=== PATIENT | male | born 1975 ===

== ENCOUNTER 2019-03-31 11:50 | Inpatient (IN) | payer OTHER ==
[~2019-03-31] VITALS: Ht 177.8 cm; Wt 76.7 kg
[2019-03-31] VITALS (7 sets, daily range): BP systolic 120–135; BP diastolic 68–84
--- NOTE | 2019-03-31 11:48 | NUR ---
ED Nurse Note: pt reported he takes Metformin but unable to recall the dosage and frequency.
[~2019-03-31 11:50] MED LIST: METFORMIN HCL5000 GM MC
--- NOTE | 2019-03-31 11:50 | NUR ---
ED Nurse Note: pt brought in to ER from street by ambulance due to severe back pain 03/26. per pt, he has had chronic back pain but today the pain got unbearable. pt lives with parents. pt aao x4 and unable to ambulate at this moment due to severe pain. calm and cooperative. skin dry but no visible wound noted at this time. no acute distress noted at this time.
--- NOTE | 2019-03-31 12:49 | NUR ---
ED Nurse Note: pt went down for x-ray by in stable condition. pt was able to ambulate from the bed to .
--- NOTE | 2019-03-31 12:50 | NUR ---
ED Nurse Note: Patient taken to X-ray in wheelchair.
[2019-03-31 13:03] LABS: APPEARANCE,URINE CLEAR; BILIRUBIN, URINE NEGATIVE (NEGATIVE); COLOR,URINE PALE YELLOW; GLUCOSE, URINE (UA) NEGATIVE (NEGATIVE); KETONES,URINE NEGATIVE (NEGATIVE); LEUKOCYTE ESTERASE ,URINE NEGATIVE (NEGATIVE); NITRITE,URINE NEGATIVE (NEGATIVE); PH,URINE 5 (4.5-8.0); PROTEIN,URINE 2+ (NEGATIVE); UROBILINOGEN,URINE NORMAL MG/DL (0.0-1.0)
[2019-03-31 13:06] LABS: HEMATOCRIT 30.2 % (42.0-52.0); HEMOGLOBIN 8.9 G/DL (14.2-18.0); MEAN CORPUSCULAR VOLUME 78 FL (80-99); RED BLOOD COUNT 3.89 M/UL (4.70-6.10); RED CELL DISTRIBUTION WIDTH 19.1 % (11.6-14.8); WHITE BLOOD COUNT 5.3 K/UL (4.8-10.8)
--- NOTE | 2019-03-31 13:06 | Emergency Room Report ---
History of Present Illness General Chief Complaint: Back Pain-No Injury Present Illness HPI 43-year-old male with a history of type 2 diabetes and hypertension currently not controlled as patient does not take his medication on daily basis, brought in by paramedics after being on the street and complaining of severe low back pain as well as bilateral leg numbness. Patient reports that he has been feeling that his legs are giving up on him and feeling numbness for several months. Patient supposed to be taking metformin for an unknown blood pressure medication who reports noncompliant with. Also reports that he drinks alcohol on a daily basis. Patient denies any fall or injury, denies urinary frequency and pain however reports of blood in his urine. Denies flank pain, saddle paresthesia, tingling and numbness radiating from lower back to the legs. Patient rating the pain in his lumbar region and 7 out of 10 and left-sided ribs 5 out of 10 without shortness of breath. Denies chest pain, blurry vision , headache, dizziness, abdominal pain, nausea vomiting. Has not taken medication to alleviate his symptoms. Patient is stable and has stable vital signs. As of trauma noted. (Rachana Singh) Allergies: Coded Allergies: No Known Allergies (Unverified , 03/31/19) Patient History Past Medical History: see triage record Past Surgical History: unable to obtain Pertinent Family History: none Social History: Reports: alcohol use - daily Immunizations: UTD Reviewed Nursing Documentation: PMH: Agreed; PSxH: Agreed (Rachana Singh) Nursing Documentation-PMH Hx Cardiac Problems: No - anemia Hx Hypertension: Yes Hx Diabetes: Yes (Rachana Singh) Review of Systems All Other Systems: negative except mentioned in HPI (Rachana Singh) Physical Exam Vital Signs Date Time Temp Pulse Resp B/P (MAP) Pulse Ox O2 Delivery O2 Flow Rate FiO2 03/31/19 12:02 98.4 111 18 125/78 (94) 95 Room Air Sp02 EP Interpretation: reviewed, normal General Appearance: no apparent distress, alert, GCS 15, non-toxic Head: normocephalic, atraumatic Eyes: bilateral eye normal inspection, bilateral eye PERRL ENT: hearing grossly normal, normal pharynx, no angioedema, normal voice Neck: full range of motion, supple/symm/no masses Respiratory: chest non-tender, lungs clear, normal breath sounds, no rhonchi, no respiratory distress, no wheezing, speaking full sentences Cardiovascular #1: normal inspection, normal peripheral pulses, regular rate, rhythm, no murmur, normal capillary refill Cardiovascular #2: 2+ dorsalis pedis (R), 2+ dorsalis pedis (L) Gastrointestinal: normal bowel sounds, non tender, soft, non-distended, no guarding, no rebound Rectal: deferred Musculoskeletal: back normal, gait/station normal, normal range of motion, non- tender, no calf tenderness, pelvis stable Neurologic: alert, oriented x3, responsive, motor strength/tone normal, sensory intact, speech normal Psychiatric: judgement/insight normal, memory normal, mood/affect normal, no suicidal/homicidal ideation Skin: no rash, normal color, other - No ecchymosis noted Lymphatic: no adenopathy (Rachana Singh) Medical Decision Making PA Attestation All my diagnosis and treatment plans were reviewed ad discussed with my supervising physician Dr. Mack (Rachana Singh) PA Attestation I have overseen and manage the care of this patient along with CAREN Cantu. Briefly, this is a 43-year-old male with a history of noncompliance for hypertension and diabetes presenting today with back pain and abdominal pain. He was found to have pancreatitis from an elevated lipase but also findings on CT suggestive of cirrhosis which he says is a new diagnosis with him, portal hypertension, splenomegaly. He has microcytic anemia and thrombocytopenia concerning for splenic sequestration as well as a granuloma in the right middle lobe. He has persistent pain and is receiving IV fluids and pain medication. He will be admitted for further work-up and management. (Joshua Cheatham MD) Diagnostic Impression: Primary Impression: Spleen enlargement Additional Impressions: Liver cirrhosis Pancreatitis ER Course 43-year-old male with a history of type 2 diabetes and hypertension currently not controlled as patient does not take his medication on daily basis, brought in by paramedics after being on the street and complaining of severe low back pain as well as bilateral leg numbness. Patient reports that he has been feeling that his legs are giving up on him and feeling numbness for several months. Patient supposed to be taking metformin for an unknown blood pressure medication who reports noncompliant with. Also reports that he drinks alcohol on a daily basis. Patient denies any fall or injury, denies urinary frequency and pain however reports of blood in his urine. Denies flank pain, saddle paresthesia, tingling and numbness radiating from lower back to the legs. Patient rating the pain in his lumbar region and 7 out of 10 and left-sided ribs 5 out of 10 without shortness of breath. Denies chest pain, blurry vision , headache, dizziness, abdominal pain, nausea vomiting. Has not taken medication to alleviate his symptoms. Patient is stable and has stable vital signs. As of trauma noted. Ddx considered but are not limited to: Splenomegaly, pink otitis, liver cirrhosis, cholecystitis, lumbar spine fracture versus contusion Vital signs: are WNL, pt. is afebrile H&PE are most consistent with: Splenomegaly, pancreatitis, liver cirrhosis ORDERS: Lumbar spine x-ray, chest x-ray with rib series on the left side, abdominal CT scan with contrast, abdominal pain order ER intervention: Morphine, NS bolus, Zofran, Pepcid Patient was admitted with diagnosis of splenomegaly, liver cirrhosis, hepatitis to under supervision of .: Nabila pt stable at time of admission (Rachana Singh) Chest X-Ray Diagnostic Results Chest X-Ray Diagnostic Results : Chest X-Ray Ordered: Yes # of Views/Limited/Complete: 1 View Indication: Other EP Interpretation: Yes PA Xray: Interpretation reviewed, by supervising MD, and agrees with findings. Interpretation: no consolidation, no effusion, no pneumothorax Impression: No acute disease Electronically Signed by: Rachana Arias PA-C (Rachana Singh) Other X-Ray Diagnostic Results Other X-Ray Diagnostic Results #1: X-Ray ordered: L spine # of Views/Limited Vs Complete: 3 View Indication: Pain EP Interpretation: Yes PA Xray: Interpretation reviewed, by supervising MD, and agrees with findings. Interpretation: no dislocation, no soft tissue swelling, no fractures Impression: No acute disease Electronically Signed by: Rahcana Arias PA-C Other X-Ray Diagnostic Results #2: X-Ray ordered: ribs left side # of Views/Limited Vs Complete: 3 View Indication: Pain EP Interpretation: Yes CAREN Xray: Interpretation reviewed, by supervising MD, and agrees with findings. Interpretation: no dislocation, no soft tissue swelling, no fractures Impression: No acute disease Electronically Signed by: Rachana Arias PA-C (Rachana Singh) CT/MRI/US Diagnostic Results CT/MRI/US Diagnostic Results : Imaging Test Ordered: CT abdomen pelvis with contrast Impression Enlarged spleen, liver cirrhosis (Rachana Singh) Last Vital Signs Date Time Temp Pulse Resp B/P (MAP) Pulse Ox O2 Delivery O2 Flow Rate FiO2 03/31/19 12:02 98.4 101 18 125/78 95 Room Air (Rachana Singh) Disposition: ADMITTED INPATIENT Condition: Serious Rachana Singh Mar 31, 2019 13:06 Joshua Cheatham MD Mar 31, 2019 17:57
[2019-03-31 13:09] LABS: ANION GAP 9 mmol/L (5-15); BLOOD UREA NITROGEN 9 mg/dL (7-18); CARBON DIOXIDE 24 MMOL/L (21-32); CHLORIDE 109 MMOL/L (98-107); CREATININE 0.9 MG/DL (0.55-1.30); POTASSIUM 3.7 MMOL/L (3.5-5.1); SODIUM 142 MMOL/L (136-145)
[2019-03-31 13:14] LABS: ALANINE AMINOTRANSFERASE 53 U/L (12-78); ALBUMIN 3.2 G/DL (3.4-5.0); ALBUMIN/GLOBULIN RATIO 0.6 (1.0-2.7); ALKALINE PHOSPHATASE 99 U/L (46-116); ASPARTATE AMINO TRANSFERASE 66 U/L (15-37); BILIRUBIN,TOTAL 0.4 MG/DL (0.2-1.0); CREATINE KINASE 141 U/L (26-308)
[2019-03-31 13:27] LABS: PLATELET COUNT 83 K/UL (150-450)
[2019-03-31] MEDS ORDERED: Omnipaque-300 100ml vial INJ PRN (13:30)
[2019-03-31 13:41] LABS: INR 1.1 (0.9-1.1)
--- NOTE | 2019-03-31 13:50 | NUR ---
ED Nurse Note: pt back from ct
--- NOTE | 2019-03-31 13:52 | Diagnostic Imaging Report ---
Indication: Lumbar spine pain Technique: 3 views of the lumbar spine Comparison: None Findings: Bony alignment is normal. Vertebral body heights are preserved. There is degenerative disc narrowing at L3-4 and L4-5. The remaining disc spaces are preserved. No acute fractures. No dislocations. The pedicles are intact. Sacral arches are preserved. Sacroiliac joint spaces are preserved. The surrounding soft tissues are unremarkable Impression: Degenerative changes as described No acute bony trauma
--- NOTE | 2019-03-31 14:50 | NUR ---
ED Nurse Note: pt left for x-ray
--- NOTE | 2019-03-31 14:59 | NUR ---
ED Nurse Note: pt back from 2nd x-ray.
--- NOTE | 2019-03-31 15:14 | Diagnostic Imaging Report ---
Clinical Indication: Severe low back pain, abdominal pain Technique: No oral contrast utilized, per emergency room physician request IV administration nonionic contrast. Venous phase spiral acquisition obtained through the abdomen and pelvis. Multiplanar reconstructions were generated. Total dose length product 4327 mGycm. CTDIvol(s) 49 x 2 mGy. Dose reduction achieved using automated exposure control Comparison: none Findings: Lack of enteric contrast limits assessment of the GI tract. The appendix is normal. There is no evidence of diverticulosis or diverticulitis. The distal ileum is somewhat prominent in caliber, but no herman small bowel distention. No free or loculated intraperitoneal gas or fluid is evident. The distal esophagus, stomach, duodenum are unremarkable. The liver demonstrates surface nodularity, consistent with cirrhosis. Subcentimeter low-attenuation lesions are seen in the inferior right hepatic lobe, segment 6. The gallbladder is nondistended, unremarkable. No biliary ductal dilatation. The pancreas is unremarkable. The spleen is enlarged, measuring 15 cm long axis dimension. No focal splenic abnormality. Small perigastric, periesophageal, and splenic hilar varices are demonstrated. The adrenals are unremarkable. The kidneys are unremarkable. No renal or ureteral calculi. No focal renal parenchymal abnormality. No hydronephrosis or hydroureter. There is mild bladder wall thickening. No pelvic mass or adenopathy. The prostate is prominent. The included lung bases demonstrate posterior dependent atelectatic changes, are otherwise clear. The bones demonstrate mild degenerative spondylosis changes. Impression: Limited assessment of the GI tract, due to lack of enteric contrast administration Mildly prominent distal ileum, doubtful significance although the possibility of enteritis should be considered Mild bladder wall thickening, could indicate cystitis No definite acute abnormality otherwise Evidence of hepatic cirrhosis, with hepatic surface nodularity Evidence of portal hypertension, with splenomegaly and small varices Prominent prostate Incidental findings as noted, including dependent posterior pulmonary atelectatic changes, mild degenerative spondylosis The CT scanner at [facility] is accredited by the [employer] and the scans are performed using protocols designed to limit radiation exposure to as low as reasonably achievable to attain images of sufficient resolution adequate for diagnostic evaluation.
[2019-03-31] MEDS ORDERED: Morphine Sulfate 2mg/ml Inj(IV/IM USE ONLY) IVP ONE (15:30)
--- NOTE | 2019-03-31 15:35 | Diagnostic Imaging Report ---
Indication: Reason For Exam: PAIN Technique: One view of the chest, 2 views of the left ribs Comparison: none Findings: Chest demonstrates clear lungs, no infiltrates, effusions, or congestion. The heart size is upper limits of normal. No evidence of acute rib fracture. No pneumothorax. There is a calcified granuloma in the right midlung Impression: No acute process Evidence of old granulomatous disease
--- NOTE | 2019-03-31 17:24 | NUR ---
ED Nurse Note: pt alert and talking on the phone.
--- NOTE | 2019-03-31 18:01 | NUR ---
ED Nurse Note: pt awake and eating second sandwich.
--- NOTE | 2019-03-31 18:23 | NUR ---
ED Nurse Note: called for report and RN said she will call back.
--- NOTE | 2019-03-31 18:58 | NUR ---
TRANSFER TO FLOOR: Patient transferred to as ordered, per MD Yelena. Report given to SELENA Toledo. Belongings and medications given to patient. Family and or S/O informed of transfer.
--- NOTE | 2019-03-31 20:26 | General Progress Note ---
Assessment/Plan Assessment/Plan: GI CONSULT Dictated. Thank you. Fatou Kolb MD Subjective Allergies: Coded Allergies: No Known Allergies (Unverified , 03/31/19) Objective Last 24 Hour Vital Signs Date Time Temp Pulse Resp B/P (MAP) Pulse Ox O2 Delivery O2 Flow Rate FiO2 03/31/19 18:58 98.0 98 18 131/84 95 Room Air 03/31/19 18:01 98.2 95 18 128/79 95 Room Air 03/31/19 16:54 97.6 98 15 135/84 95 Room Air 03/31/19 16:02 98.0 03/31/19 15:15 98.2 100 18 128/78 95 Room Air 03/31/19 14:50 98.8 95 16 120/68 95 Room Air 03/31/19 13:00 98.2 100 20 122/75 95 Room Air 03/31/19 12:02 98.4 101 18 125/78 95 Room Air 03/31/19 12:02 98.4 111 18 125/78 (94) 95 Room Air Laboratory Tests 03/31/19 12:30: White Blood Count 5.3, Red Blood Count 3.89L, Hemoglobin 8.9L, Hematocrit 30.2L , Mean Corpuscular Volume 78L, Mean Corpuscular Hemoglobin 22.9L, Mean Corpuscular Hemoglobin Concent 29.5L, Red Cell Distribution Width 19.1H, Platelet Count 83L, Mean Platelet Volume 8.9, Neutrophils (%) (Auto) , Lymphocytes (%) (Auto) , Monocytes (%) (Auto) , Eosinophils (%) (Auto) , Basophils (%) (Auto) , Differential Total Cells Counted 100, Neutrophils % ( Manual) 45, Lymphocytes % (Manual) 48H, Monocytes % (Manual) 4, Eosinophils % ( Manual) 3, Basophils % (Manual) 0, Band Neutrophils 0, Platelet Estimate DecreasedL, Platelet Morphology , Clumped Platelets 1+, Hypochromasia 1+, Anisocytosis 1+, Microcytosis 1+, Prothrombin Time 11.2, Prothromb Time International Ratio 1.1, Activated Partial Thromboplast Time 28, Urine Color Pale yellow, Urine Appearance Clear, Urine pH 5, Urine Specific [place] 1.015, Urine Protein 2+H, Urine Glucose (UA) Negative, Urine Ketones Negative, Urine Blood 1+H, Urine Nitrite Negative, Urine Bilirubin Negative, Urine Urobilinogen Normal, Urine Leukocyte Esterase Negative, Urine RBC 0-2H, Urine WBC 0, Urine Squamous Epithelial Cells Occasional, Urine Bacteria Occasional, Sodium Level 142, Potassium Level 3.7, Chloride Level 109H, Carbon Dioxide Level 24, Anion Gap 9, Blood Urea Nitrogen 9, Creatinine 0.9, Estimat Glomerular Filtration Rate > 60, Glucose Level 119H, Calcium Level 8.0L, Total Bilirubin 0.4, Aspartate Amino Transf (AST/SGOT) 66H, Alanine Aminotransferase (ALT/SGPT) 53, Alkaline Phosphatase 99, Total Creatine Kinase 141, Total Protein 8.7H, Albumin 3.2L, Globulin 5.5, Albumin/Globulin Ratio 0.6L, Lipase 623H Height (Feet): 5 Height (Inches): 10.00 Weight (Pounds): 170 Fatou Kolb MD Mar 31, 2019 20:26
[2019-03-31] MEDS ORDERED: LORazepam Inj 2mg/ml 1ml IV PRN (21:15)
[2019-03-31] MEDS: D5 1/2NS 1,000 ML IV SCH (21:15)
[2019-03-31] MEDS ORDERED: Folic Acid 1 MG, Multivitamin - 12 Injection 10 ML, Thiamine HCl 100 MG in Sodium Chlor... IV SCH (21:15)
--- NOTE | 2019-03-31 22:00 | NUR ---
NURSE NOTES: Admitted a 43 year old, alert and oriented x4, with complaint of 5/10. IV access on the right antecubital area. Obtained admission orders from Dr. Kirk. Pt was seen by Dr. Kolb, ordered to put patient on clear liquids for now. Oriented to room. Instructed the use of call light. Call light in reach, bed in lowest. Will continue to monitor.
[2019-03-31] MEDS: Thiamine 100mg in D5W 55ml IVPB SCH (22:29)
[2019-03-31] MEDS: MAGNESIUM SULFATE IV SCH (23:12)
[2019-03-31] MEDS: MULTIVITAMIN IV SCH (23:12)
[2019-03-31] MEDS: [UNRECOGNIZED DRUG - OTHER] IV SCH (23:12)
[2019-03-31] MEDS: FOLIC ACID IV SCH (23:12)
[2019-04-01] VITALS: BP 121/69
--- NOTE | 2019-04-01 00:45 | Consultation ---
DATE OF CONSULTATION: 03/31/2019 GASTROENTEROLOGY CONSULTATION CONSULTING PHYSICIAN: Fatou Kolb M.D. CHIEF COMPLAINT: I was asked to see this patient by Dr. Kirk for evaluation of cirrhosis. HISTORY OF PRESENT ILLNESS: The patient is a 43-year-old man who states he has been drinking adamantly for many years and comes into the hospital due to back pain. He states that he had back pain, felt weak and dizzy, and came to the emergency room, although he feels better now. He denies any abdominal pain, but did complain of some rib pain. He states he drinks about 10 beers a day for many years. He has diabetes, for which he takes metformin. He is aware of his cirrhosis and also anemia, but does not seem to have much workup or followup regarding these issues. He states he did not have endoscopy or colonoscopy. He denied any bleeding. He does not know if he has ever been checked for hepatitis, does not recall being told he has hepatitis. PAST MEDICAL HISTORY: History of [id number] diabetes and history of hypertension. MEDICATIONS: Metformin. FAMILY HISTORY: Noncontributory. SOCIAL HISTORY: The patient is single. He has 4 children. He drinks 10 beers a day, but does not smoke or use any drugs. REVIEW OF SYSTEMS: Otherwise negative. PHYSICAL EXAMINATION: GENERAL: Well-developed, well-nourished man, seen in his room. HEENT: Normocephalic and atraumatic. Sclerae are anicteric. Oropharynx clear. NECK: Supple. CHEST: Revealed coarse breath sounds. CARDIOVASCULAR: Revealed a regular rate. ABDOMEN: Soft, nontender. Good bowel sounds. There is no organomegaly. EXTREMITIES: Revealed no edema. NEUROLOGIC: Nonfocal. LABORATORY DATA: Noted and they showed mild elevation in AST and normal ALT with normal alkaline phosphatase and bilirubin. Albumin was mildly low at 3.2. Lipase is mildly elevated at 623 (based on this hospital's normal standards for lipase). CBC showed anemia with hematocrit of 30 and MCV of 78 and platelet count of 82,000. CT scan was noted, it was notable for some nodular changes in the liver consistent with cirrhosis and portal hypertension. ASSESSMENT: This patient has longstanding drinking with apparent portal hypertension and cirrhosis manifesting as thrombocytopenia and some mild level of alcoholic hepatitis as manifested by liver tests. However, the lipase is not very elevated according to this hospital's normal standards for lipase and also the patient denies any abdominal pain. He says the back pain is old, but he has always had back pain not the type that will be referred from the front to the back. He has already been given po diet, which he has tolerated well. I would continue his diabetic diet. He was strongly advised to discontinue drinking as this appears to be the root of this problem. Since he is anemic, he should undergo an endoscopy and colonoscopy at a later date as an outpatient once he is stabilized and has stopped drinking. I explained to the patient that his alcoholism and cirrhosis could ultimately be lethal causative factors if he does not stop drinking. RECOMMENDATIONS: 1. Intravenous hydration. 2. Restart oral diet trial. 3. Follow laboratory parameters and exam. 4. Check hepatitis serologies. 5. Strongly advised to stop drinking. 6. Outpatient endoscopy and colonoscopy. Thank you for asking me to participate in the care of this patient. Fatou Kolb M.D. DR: Harinder JOB#: [id number] CC: SARAH
--- NOTE | 2019-04-01 01:53 | NUR ---
HAND-OFF: Report given to SELENA Gee.
--- NOTE | 2019-04-01 02:00 | NUR ---
NURSE NOTES: RECEIVED PT FROM SELENA GOODEN. PT IS AWAKE, AAO X4, ON ROOM AIR, NO ACUTE DISTRESS NOTED. IV ON LEFT AC IS INTACT AND PATENT. PT DENIES PAIN AT THE MOMENT. BED IS LOCKED AND LOW, BED ALARMS ACTIVE, SIDE RAILS UP X2 AND CALL LIGHT IS WITHIN REACH. WILL CONTINUE TO MONITOR.
[2019-04-01 04:00] VITALS: BP 144/81
[2019-04-01] MEDS: D5 1/2NS 1,000 ML IV SCH (07:15)
[2019-04-01 07:16] LABS: HEMATOCRIT 27.7 % (42.0-52.0); HEMOGLOBIN 8.3 G/DL (14.2-18.0); MEAN CORPUSCULAR VOLUME 76 FL (80-99); PLATELET COUNT 26 K/UL (150-450); RED BLOOD COUNT 3.63 M/UL (4.70-6.10); WHITE BLOOD COUNT 3.7 K/UL (4.8-10.8)
--- NOTE | 2019-04-01 07:20 | NUR ---
Received report from SELENA Gee. Pt is A/Cintia4, on RA, IV site intact and running fluids, no apparent distress noted. Bed locked in lowest position, side rails up, call light within reach.
[2019-04-01 07:33] LABS: ALANINE AMINOTRANSFERASE 45 U/L (12-78); ALBUMIN 3.1 G/DL (3.4-5.0); ALBUMIN/GLOBULIN RATIO 0.6 (1.0-2.7); ALKALINE PHOSPHATASE 99 U/L (46-116); ANION GAP 6 mmol/L (5-15); ASPARTATE AMINO TRANSFERASE 54 U/L (15-37); BILIRUBIN,TOTAL 0.6 MG/DL (0.2-1.0); BLOOD UREA NITROGEN 7 mg/dL (7-18); CALCIUM 8.2 MG/DL (8.5-10.1); CARBON DIOXIDE 28 MMOL/L (21-32); CHLORIDE 104 MMOL/L (98-107); CREATININE 0.7 MG/DL (0.55-1.30); POTASSIUM 3.3 MMOL/L (3.5-5.1); SODIUM 138 MMOL/L (136-145)
--- NOTE | 2019-04-01 07:49 | NUR ---
HAND-OFF: Report given to SELENA PORTER.
[2019-04-01 08:00] VITALS: BP 140/77
--- NOTE | 2019-04-01 08:15 | NUR ---
NURSE NOTES: RN spoke to Dr. Ott regarding patient's WBC of 3.7 and PLT of 26,000 today dropped from 83,000 since 03/31/19. No episodes of active bleeding now but patient stated that he had alfreda colored urine before. RN received order from Dr. Ott to check INR and Fibrinogen and give 1 unit of platelet, BBK made aware and RN was told platelet will be ordered to [facility] so it will take 4-5 hours to receive and patient agreed with platelet transfusion. Transfusion information given to the patient.
[2019-04-01 10:26] LABS: INR 1.1 (0.9-1.1)
--- NOTE | 2019-04-01 10:51 | Consultation ---
History of Present Illness General Chief Complaint: Back Pain-No Injury Present Illness Allergies: Coded Allergies: No Known Allergies (Unverified , 03/31/19) Medication History Miscellaneous Medications Metformin Hcl (Metformin Hcl), Unknown Dose MC, (Reported) Patient History Healthcare decision maker Resuscitation status Full Code Advanced Directive on File Physical Exam Last 24 Hour Vital Signs Date Time Temp Pulse Resp B/P (MAP) Pulse Ox O2 Delivery O2 Flow Rate FiO2 04/01/19 04:00 98.1 73 17 144/81 (102) 98 04/01/19 00:00 98.6 90 18 121/69 (86) 95 03/31/19 23:09 Room Air 03/31/19 20:00 98.5 92 19 124/70 (88) 95 03/31/19 18:58 98.0 98 18 131/84 95 Room Air 03/31/19 18:01 98.2 95 18 128/79 95 Room Air 03/31/19 16:54 97.6 98 15 135/84 95 Room Air 03/31/19 16:02 98.0 03/31/19 15:15 98.2 100 18 128/78 95 Room Air 03/31/19 14:50 98.8 95 16 120/68 95 Room Air 03/31/19 13:00 98.2 100 20 122/75 95 Room Air 03/31/19 12:02 98.4 101 18 125/78 95 Room Air 03/31/19 12:02 98.4 111 18 125/78 (94) 95 Room Air Intake and Output 03/31/19 04/01/19 18:59 06:59 Intake Total 3000 ml 911 ml Balance 3000 ml 911 ml Intake Oral 0 ml 480 ml IV Total 3000 ml 431 ml # Voids 3 Laboratory Tests Test 03/31/19 12:30 04/01/19 05:53 04/01/19 09:00 White Blood Count 5.3 K/UL (4.8-10.8) 3.7 K/UL (4.8-10.8) L Red Blood Count 3.89 M/UL (4.70-6.10) L 3.63 M/UL (4.70-6.10) L Hemoglobin 8.9 G/DL (14.2-18.0) L 8.3 G/DL (14.2-18.0) L Hematocrit 30.2 % (42.0-52.0) L 27.7 % (42.0-52.0) L Mean Corpuscular Volume 78 FL (80-99) L 76 FL (80-99) L Mean Corpuscular Hemoglobin 22.9 PG (27.0-31.0) L 23.0 PG (27.0-31.0) L Mean Corpuscular Hemoglobin Concent 29.5 G/DL (32.0-36.0) L 30.1 G/DL (32.0-36.0) L Red Cell Distribution Width 19.1 % (11.6-14.8) H 19.0 % (11.6-14.8) H Platelet Count 83 K/UL (150-450) L 26 K/UL (150-450) #L Mean Platelet Volume 8.9 FL (6.5-10.1) 8.5 FL (6.5-10.1) Neutrophils (%) (Auto) % (45.0-75.0) % (45.0-75.0) Lymphocytes (%) (Auto) % (20.0-45.0) % (20.0-45.0) Monocytes (%) (Auto) % (1.0-10.0) % (1.0-10.0) Eosinophils (%) (Auto) % (0.0-3.0) % (0.0-3.0) Basophils (%) (Auto) % (0.0-2.0) % (0.0-2.0) Differential Total Cells Counted 100 Neutrophils % (Manual) 45 % (45-75) Pending Lymphocytes % (Manual) 48 % (20-45) H Pending Monocytes % (Manual) 4 % (1-10) Eosinophils % (Manual) 3 % (0-3) Basophils % (Manual) 0 % (0-2) Band Neutrophils 0 % (0-8) Platelet Estimate Decreased L Pending Platelet Morphology Pending Clumped Platelets 1+ Hypochromasia 1+ Anisocytosis 1+ Microcytosis 1+ Prothrombin Time 11.2 SEC (9.30-11.50) 11.6 SEC (9.30-11.50) H Prothromb Time International Ratio 1.1 (0.9-1.1) 1.1 (0.9-1.1) Activated Partial Thromboplast Time 28 SEC (23-33) Urine Color Pale yellow Urine Appearance Clear Urine pH 5 (4.5-8.0) Urine Specific [place] 1.015 (1.005-1.035) Urine Protein 2+ (NEGATIVE) H Urine Glucose (UA) Negative (NEGATIVE) Urine Ketones Negative (NEGATIVE) Urine Blood 1+ (NEGATIVE) H Urine Nitrite Negative (NEGATIVE) Urine Bilirubin Negative (NEGATIVE) Urine Urobilinogen Normal MG/DL (0.0-1.0) Urine Leukocyte Esterase Negative (NEGATIVE) Urine RBC 0-2 /HPF (0 - 0) H Urine WBC 0 /HPF (0 - 0) Urine Squamous Epithelial Cells Occasional /LPF Urine Bacteria Occasional /HPF (NONE) Sodium Level 142 MMOL/L (136-145) 138 MMOL/L (136-145) Potassium Level 3.7 MMOL/L (3.5-5.1) 3.3 MMOL/L (3.5-5.1) L Chloride Level 109 MMOL/L (98-107) H 104 MMOL/L (98-107) Carbon Dioxide Level 24 MMOL/L (21-32) 28 MMOL/L (21-32) Anion Gap 9 mmol/L (5-15) 6 mmol/L (5-15) Blood Urea Nitrogen 9 mg/dL (7-18) 7 mg/dL (7-18) Creatinine 0.9 MG/DL (0.55-1.30) 0.7 MG/DL (0.55-1.30) Estimat Glomerular Filtration Rate > 60 mL/min (>60) > 60 mL/min (>60) Glucose Level 119 MG/DL (74-106) H 86 MG/DL (74-106) Calcium Level 8.0 MG/DL (8.5-10.1) L 8.2 MG/DL (8.5-10.1) L Total Bilirubin 0.4 MG/DL (0.2-1.0) 0.6 MG/DL (0.2-1.0) Aspartate Amino Transf (AST/SGOT) 66 U/L (15-37) H 54 U/L (15-37) H Alanine Aminotransferase (ALT/SGPT) 53 U/L (12-78) 45 U/L (12-78) Alkaline Phosphatase 99 U/L (46-116) 99 U/L (46-116) Total Creatine Kinase 141 U/L (26-308) Total Protein 8.7 G/DL (6.4-8.2) H 8.5 G/DL (6.4-8.2) H Albumin 3.2 G/DL (3.4-5.0) L 3.1 G/DL (3.4-5.0) L Globulin 5.5 g/dL 5.4 g/dL Albumin/Globulin Ratio 0.6 (1.0-2.7) L 0.6 (1.0-2.7) L Lipase 623 U/L (73-393) H 552 U/L (73-393) H Hepatitis A IgM Antibody Pending Hepatitis B Surface Antigen Pending Hepatitis B Core IgM Antibody Pending Hepatitis C Antibody Pending Fibrinogen 213 mg/dL (200-400) Height (Feet): 5 Height (Inches): 10.00 Weight (Pounds): 169 Medications Current Medications Medications (Trade) Dose Ordered Sig/Sheyla Route PRN Reason Start Time Stop Time Status Last Admin Dose Admin Clonidine HCl (Catapres Tab) 0.1 mg Q6H PRN ORAL SBP>170 03/31/19 21:15 04/30/19 21:14 Dextrose/Sodium Chloride 1,000 ml @ 100 mls/hr Q10H IV 03/31/19 21:15 04/30/19 21:14 Folic Acid 1 mg/ Multivitamins 10 ml/Magnesium Sulfate 2000 mg/ Sodium Chloride 1,014.2 ml @ 75 mls/hr Q24H IV 03/31/19 23:00 04/30/19 22:59 03/31/19 23:12 Iohexol (OMNIPAQUE-300 100ml) 100 ml NOW PRN INJ Radiology Procedure 03/31/19 13:30 04/02/19 13:17 Lorazepam (Ativan 2mg/ml 1ml) 2 mg Q2H PRN IV For Seizures 03/31/19 21:15 04/07/19 21:14 Potassium Chloride 100 ml @ 100 mls/hr Q1HR IVPB 04/01/19 09:00 04/01/19 10:59 04/01/19 09:55 Thiamine HCl 100 mg/Dextrose 56 ml @ 112 mls/hr Q24H IVPB 03/31/19 23:00 04/30/19 22:59 03/31/19 22:29 Assessment/Plan Assessment/Plan: Hematology Consultation ARLEEN MILTON: Katharine Theodore RFC: Thrombocytopenia, Splenomegaly eval DOS: 04/01/19 ID 43-year-old male with a history of type 2 diabetes and hypertension currently not controlled as patient does not take his medication on daily basis, brought in by paramedics after being on the street and complaining of severe low back pain as well as bilateral leg numbness. Patient reports that he has been feeling that his legs are giving up on him and feeling numbness for several months. Patient supposed to be taking metformin for an unknown blood pressure medication who reports noncompliant with. Also reports that he drinks alcohol on a daily basis. Patient denies any fall or injury, denies urinary frequency and pain however reports of blood in his urine. Denies flank pain, saddle paresthesia, tingling and numbness radiating from lower back to the legs. Patient rating the pain in his lumbar region and 7 out of 10 and left-sided ribs 5 out of 10 without shortness of breath. Denies chest pain, blurry vision , headache, dizziness, abdominal pain, nausea vomiting. Has not taken medication to alleviate his symptoms. Patient is stable and has stable vital signs. As of trauma noted. CT a/p was reviewed and shows splenomegaly and cirrhosis and heme was consulted for further eval, given plt count has dropped significantly. Allergies: No Known Allergies (Unverified , 03/31/19) Past Medical History: see triage record Past Surgical History: unable to obtain Pertinent Family History: none Social History: Reports: alcohol use - daily Immunizations: UTD Reviewed Nursing Documentation: PMH: Agreed; PSxH: Agreed (Rachana Singh) Nursing Documentation-PMH Hx Cardiac Problems: No - anemia Hx Hypertension: Yes Hx Diabetes: Yes Review of Systems negative except mentioned in HPI PE: Vitals: reviewed General Appearance: NAD HEENT: normocephalic, atraumatic Neck: non-tender, normal alignment Respiratory/Chest: nromal breath sounds bilaterally Cardiovascular/Chest: normal peripheral pulses, normal rate Abdomen: normal bowel sounds, soft, nontender Extremities: normal range of motion Labs: noted Imaging: reviewed Assessment and Recs: # Thrombocytopenia - due to etoh abise, is in this case very likely due to underlying cirrhosis of the liver, portal htn, splenomegaly, with microcytic anemia --> have urged him to stop drinking --> Hep panel and HIV ordered --> CT scan of a/p does confirm cirrhosis --> Peripheral smear ordered to evaluate for blasts /schistocytes shows mostly lymphocytes, likely due to low wbc in general --> abx and other meds have been reviewed --> plt 83-->26k --> give platelet transfusion given rapid drop, r/o DIC as well, have ordered workup --> hold lovenox/heparin sq # Leukopenia -- due to underlying liver disease, cirrhosis and portal htn/ splenomegaly --> peripheral smear has been ordered and does not show significant abnormalities --> Medications have been reviewed --> Continue to monitor for improvement, trend cbc --> Hep panel and HIV have been ordered --> reverse isolation if ANC is <2000 # Pancreatitis from an elevated lipase but also findings on CT suggestive of cirrhosis which he says is a new diagnosis with him, portal hypertension, splenomegaly. --> has splenic sequestration as well as a granuloma in the right middle lobe. --> He has persistent pain and is receiving IV fluids and pain medication, thiamine, folic acid # Spleen enlargement # Type 2 diabetes # Hypertension currently not controlled # Cirrhosis due to etoh use # DVt ppx with scds The timing of this note does not necessarily reflect the time of the patient was seen. Greatly appreciate consultation. Audi Ott MD Apr 01, 2019 10:51
--- NOTE | 2019-04-01 11:44 | NUR ---
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
[2019-04-01 12:00] VITALS: BP 135/80
[2019-04-01 16:00] VITALS: BP 122/90
--- NOTE | 2019-04-01 16:03 | Consultation ---
Consult Note Consult Note asked to eval at the request of dr roman 43-year-old male with a history of type 2 diabetes and hypertension currently not controlled as patient does not take his medication on daily basis, brought in by paramedics after being on the street and complaining of severe low back pain as well as bilateral leg numbness. Patient reports that he has been feeling that his legs are giving up on him and feeling numbness for several months. Patient supposed to be taking metformin for an unknown blood pressure medication who reports noncompliant with. Also reports that he drinks alcohol on a daily basis. Patient denies any fall or injury, denies urinary frequency and pain however reports of blood in his urine. Denies flank pain, saddle paresthesia, tingling and numbness radiating from lower back to the legs. Patient rating the pain in his lumbar region and 7 out of 10 and left-sided ribs 5 out of 10 without shortness of breath. Denies chest pain, blurry vision , headache, dizziness, abdominal pain, nausea vomiting. Has not taken medication to alleviate his symptoms. Patient is stable and has stable vital signs. As of trauma noted. No Known Allergies (Unverified , 03/31/19) Hx Cardiac Problems: No - anemia Hx Hypertension: Yes Hx Diabetes: Yes interviewed examined data reviewed Assessment/Plan Pancreatitis Anemia HTN Cirrhosis Anemia mena PRN BP meds Per orders Esequiel Foley MD Apr 01, 2019 16:03
--- NOTE | 2019-04-01 16:29 | NUR ---
CASE MANAGEMENT:REVIEW 43 YR OLD MALE PRESENTED TO ER CC: BACK PAIN SI: PANCREATITIS. LIVER CIRRHOSIS 98.4 101 18 125/78 95% ON RA H/H-8.9/30.2 PLT-83 LIPASE+623 IS: 1L NS BOLUS X2 IV MORPHINE IV ZOFRAN CT ABD/PELVIS XRAY RIBS AND L SPINE : TO MED/SURG [facility]
--- NOTE | 2019-04-01 17:00 | NUR ---
NURSE NOTES: Pt signed the platelet transfusion consent form. Platelet transfusion information given to the pt. Pt is aware of possible adverse reactions. Given Tylenol and Benadryl x 1 prior to platelet transfusion as per Dr. Ott. VS obtained. BP 149/80 ID 67 O2 Sat 99% RR 16 Temp 98.1. Started platelet, 2 RNs verified it. RN at bedside will continue to monitor.
--- NOTE | 2019-04-01 17:00 | NUR ---
NURSE NOTES: Unable to hang IVF due to patient is getting platelet. Will hang it later.
--- NOTE | 2019-04-01 17:15 | NUR ---
NURSE NOTES: rechecked v/s BP- 132/75, pulse 67, temp 98.1 and o2sat is 98%, no adverse reaction @ this time. Will continue to monitor.
--- NOTE | 2019-04-01 18:00 | NUR ---
NURSE NOTES: Patient is tolerated with his regular diet, denies nausea or vomiting, no pain. Patient is aware of urine collection for drug screen.
--- NOTE | 2019-04-01 18:50 | NUR ---
NURSE NOTES: Patient finished platelet transfusion without adverse reaction. v/s obtained BP- 132/83, pulse is 74 and temp is 99.0. O2 sat is 98%, denies any back pain or SOB. Endorse to next shift to continue to monitor. RN returned paper and empty bag to [facility]. Urine specimen was collected and sent it to lab.
[2019-04-01] MEDS: D5NS w/KCl 40mEq 1000ml 1,000 ML IV SCH (19:02)
--- NOTE | 2019-04-01 19:24 | NUR ---
HAND-OFF: Report given to SELENA Gee.
--- NOTE | 2019-04-01 19:30 | NUR ---
NURSE NOTES: RECEIVED PT FROM SELENA PORTER. PT IS AWAKE, AAO X4, ON ROOM AIR, NO ACUTE DISTRESS NOTED. IV ON LEFT AC IS INTACT AND PATENT. PT DENIES PAIN AND SOB. BED IS LOCKED AND LOW, BED ALARMS ACTIVE, SIDE RAILS UP X2 AND CALL LIGHT IS WITHIN REACH. WILL CONTINUE TO MONITOR
[2019-04-01 20:00] VITALS: BP 127/76
--- NOTE | 2019-04-01 21:28 | General Progress Note ---
Assessment/Plan Assessment/Plan: Assessment - alcohol abuse - alcoholic liver disease - alcoholic pancreatitis - Anemia / thrombocytopenia Recommendations - d/c EtOH - follow labs - po solids - outpatient colonoscopy advised to pt, once improved Subjective Allergies: Coded Allergies: No Known Allergies (Unverified , 03/31/19) Subjective Better tolerating PO no abd pain Objective Last 24 Hour Vital Signs Date Time Temp Pulse Resp B/P (MAP) Pulse Ox O2 Delivery O2 Flow Rate FiO2 04/01/19 20:00 98.4 70 16 127/76 (93) 97 04/01/19 16:00 98.5 71 18 122/90 (101) 97 04/01/19 12:00 98.4 80 20 135/80 (98) 97 04/01/19 09:00 Room Air 04/01/19 08:00 98.6 78 18 140/77 (98) 96 04/01/19 04:00 98.1 73 17 144/81 (102) 98 04/01/19 00:00 98.6 90 18 121/69 (86) 95 03/31/19 23:09 Room Air Intake and Output 03/31/19 04/01/19 19:00 07:00 Intake Total 3000 ml 986 ml Balance 3000 ml 986 ml Intake Oral 0 ml 480 ml IV Total 3000 ml 506 ml # Voids 3 Laboratory Tests 04/01/19 05:53: White Blood Count 3.7L, Red Blood Count 3.63L, Hemoglobin 8.3L, Hematocrit 27.7L , Mean Corpuscular Volume 76L, Mean Corpuscular Hemoglobin 23.0L, Mean Corpuscular Hemoglobin Concent 30.1L, Red Cell Distribution Width 19.0H, Platelet Count 26#L, Mean Platelet Volume 8.5, Neutrophils (%) (Auto) , Lymphocytes (%) (Auto) , Monocytes (%) (Auto) , Eosinophils (%) (Auto) , Basophils (%) (Auto) , Differential Total Cells Counted 100, Neutrophils % ( Manual) 54, Lymphocytes % (Manual) 34, Monocytes % (Manual) 10, Eosinophils % ( Manual) 2, Basophils % (Manual) 0, Band Neutrophils 0, Platelet Estimate DecreasedL, Platelet Morphology Normal, Hypochromasia 2+, Anisocytosis 2+, Microcytosis 1+, Sodium Level 138, Potassium Level 3.3L, Chloride Level 104, Carbon Dioxide Level 28, Anion Gap 6, Blood Urea Nitrogen 7, Creatinine 0.7, Estimat Glomerular Filtration Rate > 60, Glucose Level 86, Calcium Level 8.2L, Total Bilirubin 0.6, Aspartate Amino Transf (AST/SGOT) 54H, Alanine Aminotransferase (ALT/SGPT) 45, Alkaline Phosphatase 99, Total Protein 8.5H, Total Protein (PEP) [Pending], Albumin 3.1L, Albumin (PEP) [Pending], Globulin 5.4, Globulin (PEP) [Pending], Albumin/Globulin Ratio [Pending], Alpha-1- Globulins [Pending], Ipozn-8-Xecrhatbu [Pending], Beta Globulins [Pending], Beta Gamma Globulin [Pending], PEP Abnormal Protein Bands [Pending], Protein Electrophoresis Interpret [Pending], Lipase 552H, Hepatitis A IgM Antibody [ Pending], Hepatitis B Surface Antigen [Pending], Hepatitis B Core IgM Antibody [ Pending], Hepatitis C Antibody [Pending], HIV (1&2) Antibody Rapid Negative 04/01/19 09:00: Prothrombin Time 11.6H, Prothromb Time International Ratio 1.1, Fibrinogen 213 04/01/19 19:10: Urine Opiates Screen Negative, Urine Barbiturates Screen Negative, Phencyclidine (PCP) Screen Negative, Urine Amphetamines Screen Negative, Urine Benzodiazepines Screen Negative, Urine Cocaine Screen Negative, Urine Marijuana (THC) Screen Negative Height (Feet): 5 Height (Inches): 10.00 Weight (Pounds): 169 Objective WDWN NCAT supple CTA RR Abd soft NT ND no edema non focal Fatou Kolb MD Apr 01, 2019 21:28
[2019-04-01] MEDS: MULTIVITAMIN IV SCH ×2 (23:11→23:37)
[2019-04-01] MEDS: [UNRECOGNIZED DRUG - OTHER] IV SCH ×2 (23:11→23:37)
[2019-04-01] MEDS: FOLIC ACID IV SCH ×2 (23:11→23:37)
[2019-04-01] MEDS: MAGNESIUM SULFATE IV SCH ×2 (23:11→23:37)
[2019-04-01] MEDS: Thiamine 100mg in D5W 55ml IVPB SCH ×2 (23:19→23:37)
--- NOTE | 2019-04-01 23:45 | History and Physical Report ---
DATE OF ADMISSION: 03/31/2019 HISTORY OF PRESENT ILLNESS: The patient comes in with low back pain, abdominal pain for couple of days. Associated with nausea. No vomiting. No rectal bleeding. The patient has uncontrolled hypertension, type 2 diabetes. Has alcohol abuse. Also has chronic back pain, abdominal pain, and was admitted also for pancreatitis, also thrombocytopenia, and anemia most likely due to alcohol. Did not show any necrotizing pancreatitis, but did show liver cirrhosis with portal hypertension and from the right mid lung. The patient admitted for those reasons. PAST MEDICAL HISTORY: Significant for cirrhosis of the liver, alcohol abuse, history of pancreatitis, hypertension, and NIDDM. SOCIAL HISTORY: History of smoking, history of drug, and alcohol abuse. ALLERGIES: No known allergies. MEDICATIONS: Metformin. FAMILY HISTORY: Does have history of diabetes and hypertension. SOCIAL HISTORY: As mentioned. REVIEW OF SYSTEMS: HEENT: Denies headaches. RESPIRATORY: Denies shortness of breath. Denies cough. CARDIOVASCULAR: Denies chest pain. Denies orthopnea. GASTROINTESTINAL: Reports abdominal pain. No constipation. Some nausea. No vomiting. EXTREMITIES: Does have chronic pain syndrome. CENTRAL NERVOUS SYSTEM: Denies any change in vision or speech pattern. Feels weak. PHYSICAL EXAMINATION: VITAL SIGNS: Temperature is 98.1, pulse is 73, blood pressure 144/81. HEENT: PERRLA. NECK: Supple. No lymphadenopathy. CHEST: Clear to auscultation. CARDIOVASCULAR: Regular rate and rhythm. No murmurs or extra sounds. GASTROINTESTINAL: Right upper quadrant tenderness. No rebound. No organomegaly. EXTREMITIES: 1+ edema. Reflexes equal on both sides. Moves all four extremities. Has generalized weakness. LABORATORY DATA: WBC of 5.3, hemoglobin of 8.9, platelets of 83. Sodium 142, potassium 3.7, BUN of 9, creatinine 0.9, glucose of 119. Total bilirubin 0.4, AST of 66, ALT of 63, alkaline phosphatase of 99. Lipase of 623. ASSESSMENT AND PLAN: Abdominal pain, pancreatitis due to alcohol abuse. Admitted for those. We will keep the patient NPO. The patient also had elevated blood pressure. I have basically consulted Dr. Wren, Dr. Audi Ott, Dr. Adams, Dr. Kolb, and Dr. Foley for DT management as well as for management of pancreatitis as well as for borderline hypokalemia as well as for the management of the pancytopenia, most likely due to alcohol abuse. Bambi Kirk M.D. DR: MARIBETH JOB#: [id number] CC:
[2019-04-02] VITALS: BP 125/81
[2019-04-02 04:00] VITALS: BP 124/76
[2019-04-02] MEDS: D5NS w/KCl 40mEq 1000ml 1,000 ML IV SCH (06:20)
[2019-04-02 07:04] LABS: HEMATOCRIT 29.4 % (42.0-52.0); HEMOGLOBIN 8.8 G/DL (14.2-18.0); MEAN CORPUSCULAR VOLUME 76 FL (80-99); PLATELET COUNT 35 K/UL (150-450); RED BLOOD COUNT 3.85 M/UL (4.70-6.10); RED CELL DISTRIBUTION WIDTH 18.6 % (11.6-14.8); WHITE BLOOD COUNT 3.1 K/UL (4.8-10.8)
--- NOTE | 2019-04-02 07:20 | NUR ---
nurse notes received patient in bed, patient awake, alert, oriented x4, no sign of distress, IVf patent and infusing well, on fall precaution instructed and maintained, plan of care was discussed verbalized understanding 4P's in progress call w/n reach will continue to monitor meredith matthew
--- NOTE | 2019-04-02 07:37 | NUR ---
HAND-OFF: Report given to SELENA LANGSTON.
[2019-04-02 07:42] LABS: ALANINE AMINOTRANSFERASE 42 U/L (12-78); ALBUMIN 3.1 G/DL (3.4-5.0); ALBUMIN/GLOBULIN RATIO 0.6 (1.0-2.7); ALKALINE PHOSPHATASE 102 U/L (46-116); ANION GAP 7 mmol/L (5-15); ASPARTATE AMINO TRANSFERASE 44 U/L (15-37); BILIRUBIN,TOTAL 1.1 MG/DL (0.2-1.0); BLOOD UREA NITROGEN 7 mg/dL (7-18); CALCIUM 8.8 MG/DL (8.5-10.1); CARBON DIOXIDE 28 MMOL/L (21-32); CHLORIDE 102 MMOL/L (98-107); CREATININE 0.8 MG/DL (0.55-1.30); FERRITIN 13 NG/ML (8-388); GAMMA GLUTAMYL TRANSPEPTIDASE 852 U/L (5-85); PHOSPHORUS 2.9 MG/DL (2.5-4.9); POTASSIUM 3.5 MMOL/L (3.5-5.1); SODIUM 137 MMOL/L (136-145)
[2019-04-02 07:47] LABS: BILIRUBIN,DIRECT 0.3 MG/DL (0.0-0.3)
[2019-04-02 08:00] VITALS: BP 142/85
[2019-04-02 08:23] LABS: % IRON SATURATION 8 % (15-50); IRON 29 ug/dL (50-175); TOTAL IRON BINDING CAPACITY 380 ug/dL (250-450)
--- NOTE | 2019-04-02 10:39 | NUR ---
CASE MANAGEMENT:REVIEW 04/02/19 SI: ALCOHOLIC PANCREATITIS. LIVER DISEASE S/P 1 UNIT PLT 98.4 68 17 142/85 97% ON RA H/H-8.8/29.4 PLT-35 IS: IVF@75/HR IV BANANA BAG IV THIAMINE Q24 : MED/SURG STATUS 4 EAST DCP: FROM HOME
--- NOTE | 2019-04-02 10:44 | General Progress Note ---
Assessment/Plan Assessment/Plan: Assessment - alcohol abuse - alcoholic liver disease - alcoholic pancreatitis - Anemia / thrombocytopenia - Iron deficiency Recommendations - d/c EtOH - follow labs - po solids - IV Iron - Patient understands he should undergo outpatient EGD/colonoscopy given anemia Subjective Allergies: Coded Allergies: No Known Allergies (Unverified , 03/31/19) Subjective Better tolerating PO no abd pain Objective Last 24 Hour Vital Signs Date Time Temp Pulse Resp B/P (MAP) Pulse Ox O2 Delivery O2 Flow Rate FiO2 04/02/19 08:00 98.4 68 17 142/85 (104) 97 04/02/19 08:00 Room Air 04/02/19 04:00 98.4 68 17 124/76 (92) 97 04/02/19 00:00 98.2 62 17 125/81 (96) 97 04/01/19 21:00 Room Air 04/01/19 20:00 98.4 70 16 127/76 (93) 97 04/01/19 16:00 98.5 71 18 122/90 (101) 97 04/01/19 12:00 98.4 80 20 135/80 (98) 97 Intake and Output 04/01/19 04/02/19 18:59 06:59 Intake Total 1359 ml 1372 ml Balance 1359 ml 1372 ml Intake Oral 300 ml 360 ml IV Total 725 ml 1012 ml Blood Product 334 ml # Voids 3 Laboratory Tests 04/01/19 19:10: Urine Opiates Screen Negative, Urine Barbiturates Screen Negative, Phencyclidine (PCP) Screen Negative, Urine Amphetamines Screen Negative, Urine Benzodiazepines Screen Negative, Urine Cocaine Screen Negative, Urine Marijuana (THC) Screen Negative 04/02/19 06:10: White Blood Count 3.1L, Red Blood Count 3.85L, Hemoglobin 8.8L, Hematocrit 29.4L , Mean Corpuscular Volume 76L, Mean Corpuscular Hemoglobin 22.9L, Mean Corpuscular Hemoglobin Concent 30.0L, Red Cell Distribution Width 18.6H, Platelet Count 35L, Mean Platelet Volume 4.6L, Neutrophils (%) (Auto) , Lymphocytes (%) (Auto) , Monocytes (%) (Auto) , Eosinophils (%) (Auto) , Basophils (%) (Auto) , Differential Total Cells Counted 100, Neutrophils % ( Manual) 52, Lymphocytes % (Manual) 34, Monocytes % (Manual) 12H, Eosinophils % ( Manual) 2, Basophils % (Manual) 0, Band Neutrophils 0, Platelet Estimate DecreasedL, Platelet Morphology , Clumped Platelets 1+, Hypochromasia 1+, Anisocytosis 1+, Microcytosis 1+, Sodium Level 137, Potassium Level 3.5, Chloride Level 102, Carbon Dioxide Level 28, Anion Gap 7, Blood Urea Nitrogen 7 , Creatinine 0.8, Estimat Glomerular Filtration Rate > 60, Glucose Level 115H, Hemoglobin A1c 6.0, Uric Acid 4.6, Calcium Level 8.8, Phosphorus Level 2.9, Magnesium Level 2.1, Iron Level 29L, Total Iron Binding Capacity 380, Percent Iron Saturation 8L, Unsaturated Iron Binding 351H, Ferritin 13, Total Bilirubin 1.1H, Direct Bilirubin 0.3, Gamma Glutamyl Transpeptidase 852H, Aspartate Amino Transf (AST/SGOT) 44H, Alanine Aminotransferase (ALT/SGPT) 42, Alkaline Phosphatase 102, Ammonia 25, C-Reactive Protein, Quantitative < 0.4, Pro-B-Type Natriuretic Peptide 96, Total Protein 8.6H, Albumin 3.1L, Globulin 5.5, Albumin/ Globulin Ratio 0.6L, Vitamin B12 Level 1301H, Folate 25.1 Height (Feet): 5 Height (Inches): 10.00 Weight (Pounds): 169 Objective WDWN NCAT supple CTA RR Abd soft NT ND no edema non focal Fatou Kolb MD Apr 02, 2019 10:44
[2019-04-02 11:57] VITALS: BP 144/87
--- NOTE | 2019-04-02 12:10 | General Progress Note ---
Assessment/Plan Problem List: (1) Liver cirrhosis ICD Codes: K74.60 - Unspecified cirrhosis of liver SNOMED: 98296555 (2) Pancreatitis ICD Codes: K85.90 - Acute pancreatitis without necrosis or infection, unspecified SNOMED: 15953456 (3) Spleen enlargement ICD Codes: R16.1 - Splenomegaly, not elsewhere classified SNOMED: 46244619 Status: progressing Assessment/Plan: etoh cirrhosis splenomegaly pancreatitis abdominal pain reviewed chart and labs afebrile Subjective ROS Limited/Unobtainable: Yes Allergies: Coded Allergies: No Known Allergies (Unverified , 03/31/19) Objective Last 24 Hour Vital Signs Date Time Temp Pulse Resp B/P (MAP) Pulse Ox O2 Delivery O2 Flow Rate FiO2 04/02/19 11:57 98.2 61 17 144/87 (106) 99 04/02/19 08:00 98.4 68 17 142/85 (104) 97 04/02/19 08:00 Room Air 04/02/19 04:00 98.4 68 17 124/76 (92) 97 04/02/19 00:00 98.2 62 17 125/81 (96) 97 04/01/19 21:00 Room Air 04/01/19 20:00 98.4 70 16 127/76 (93) 97 04/01/19 16:00 98.5 71 18 122/90 (101) 97 Intake and Output 04/01/19 04/02/19 18:59 06:59 Intake Total 1359 ml 1372 ml Balance 1359 ml 1372 ml Intake Oral 300 ml 360 ml IV Total 725 ml 1012 ml Blood Product 334 ml # Voids 3 Laboratory Tests 04/01/19 19:10: Urine Opiates Screen Negative, Urine Barbiturates Screen Negative, Phencyclidine (PCP) Screen Negative, Urine Amphetamines Screen Negative, Urine Benzodiazepines Screen Negative, Urine Cocaine Screen Negative, Urine Marijuana (THC) Screen Negative 04/02/19 06:10: White Blood Count 3.1L, Red Blood Count 3.85L, Hemoglobin 8.8L, Hematocrit 29.4L , Mean Corpuscular Volume 76L, Mean Corpuscular Hemoglobin 22.9L, Mean Corpuscular Hemoglobin Concent 30.0L, Red Cell Distribution Width 18.6H, Platelet Count 35L, Mean Platelet Volume 4.6L, Neutrophils (%) (Auto) , Lymphocytes (%) (Auto) , Monocytes (%) (Auto) , Eosinophils (%) (Auto) , Basophils (%) (Auto) , Differential Total Cells Counted 100, Neutrophils % ( Manual) 52, Lymphocytes % (Manual) 34, Monocytes % (Manual) 12H, Eosinophils % ( Manual) 2, Basophils % (Manual) 0, Band Neutrophils 0, Platelet Estimate DecreasedL, Platelet Morphology , Clumped Platelets 1+, Hypochromasia 1+, Anisocytosis 1+, Microcytosis 1+, Sodium Level 137, Potassium Level 3.5, Chloride Level 102, Carbon Dioxide Level 28, Anion Gap 7, Blood Urea Nitrogen 7 , Creatinine 0.8, Estimat Glomerular Filtration Rate > 60, Glucose Level 115H, Hemoglobin A1c 6.0, Uric Acid 4.6, Calcium Level 8.8, Phosphorus Level 2.9, Magnesium Level 2.1, Iron Level 29L, Total Iron Binding Capacity 380, Percent Iron Saturation 8L, Unsaturated Iron Binding 351H, Ferritin 13, Total Bilirubin 1.1H, Direct Bilirubin 0.3, Gamma Glutamyl Transpeptidase 852H, Aspartate Amino Transf (AST/SGOT) 44H, Alanine Aminotransferase (ALT/SGPT) 42, Alkaline Phosphatase 102, Ammonia 25, C-Reactive Protein, Quantitative < 0.4, Pro-B-Type Natriuretic Peptide 96, Total Protein 8.6H, Albumin 3.1L, Globulin 5.5, Albumin/ Globulin Ratio 0.6L, Vitamin B12 Level 1301H, Folate 25.1 Height (Feet): 5 Height (Inches): 10.00 Weight (Pounds): 169 Neck: supple Cardiovascular: normal rate Respiratory/Chest: lungs clear Abdomen: soft Bambi Kirk MD Apr 02, 2019 12:10
--- NOTE | 2019-04-02 15:11 | Nephrology Progress Note ---
Assessment/Plan Problem List: (1) Pancreatitis (2) Liver cirrhosis (3) HTN (hypertension) Assessment Pancreatitis Anemia HTN Cirrhosis Plan Anemia mena, low Iron IV venofer PRN BP meds Per orders Subjective ROS Limited/Unobtainable: No Constitutional: Reports: malaise Objective Objective Last 24 Hour Vital Signs Date Time Temp Pulse Resp B/P (MAP) Pulse Ox O2 Delivery O2 Flow Rate FiO2 04/02/19 11:57 98.2 61 17 144/87 (106) 99 04/02/19 08:00 98.4 68 17 142/85 (104) 97 04/02/19 08:00 Room Air 04/02/19 04:00 98.4 68 17 124/76 (92) 97 04/02/19 00:00 98.2 62 17 125/81 (96) 97 04/01/19 21:00 Room Air 04/01/19 20:00 98.4 70 16 127/76 (93) 97 04/01/19 16:00 98.5 71 18 122/90 (101) 97 Intake and Output 04/01/19 04/02/19 18:59 06:59 Intake Total 1359 ml 1372 ml Balance 1359 ml 1372 ml Intake Oral 300 ml 360 ml IV Total 725 ml 1012 ml Blood Product 334 ml # Voids 3 Laboratory Tests 04/01/19 19:10: Urine Opiates Screen Negative, Urine Barbiturates Screen Negative, Phencyclidine (PCP) Screen Negative, Urine Amphetamines Screen Negative, Urine Benzodiazepines Screen Negative, Urine Cocaine Screen Negative, Urine Marijuana (THC) Screen Negative 04/02/19 06:10: White Blood Count 3.1L, Red Blood Count 3.85L, Hemoglobin 8.8L, Hematocrit 29.4L , Mean Corpuscular Volume 76L, Mean Corpuscular Hemoglobin 22.9L, Mean Corpuscular Hemoglobin Concent 30.0L, Red Cell Distribution Width 18.6H, Platelet Count 35L, Mean Platelet Volume 4.6L, Neutrophils (%) (Auto) , Lymphocytes (%) (Auto) , Monocytes (%) (Auto) , Eosinophils (%) (Auto) , Basophils (%) (Auto) , Differential Total Cells Counted 100, Neutrophils % ( Manual) 52, Lymphocytes % (Manual) 34, Monocytes % (Manual) 12H, Eosinophils % ( Manual) 2, Basophils % (Manual) 0, Band Neutrophils 0, Platelet Estimate DecreasedL, Platelet Morphology , Clumped Platelets 1+, Hypochromasia 1+, Anisocytosis 1+, Microcytosis 1+, Sodium Level 137, Potassium Level 3.5, Chloride Level 102, Carbon Dioxide Level 28, Anion Gap 7, Blood Urea Nitrogen 7 , Creatinine 0.8, Estimat Glomerular Filtration Rate > 60, Glucose Level 115H, Hemoglobin A1c 6.0, Uric Acid 4.6, Calcium Level 8.8, Phosphorus Level 2.9, Magnesium Level 2.1, Iron Level 29L, Total Iron Binding Capacity 380, Percent Iron Saturation 8L, Unsaturated Iron Binding 351H, Ferritin 13, Total Bilirubin 1.1H, Direct Bilirubin 0.3, Gamma Glutamyl Transpeptidase 852H, Aspartate Amino Transf (AST/SGOT) 44H, Alanine Aminotransferase (ALT/SGPT) 42, Alkaline Phosphatase 102, Ammonia 25, C-Reactive Protein, Quantitative < 0.4, Pro-B-Type Natriuretic Peptide 96, Total Protein 8.6H, Albumin 3.1L, Globulin 5.5, Albumin/ Globulin Ratio 0.6L, Vitamin B12 Level 1301H, Folate 25.1 Height (Feet): 5 Height (Inches): 10.00 Weight (Pounds): 169 General Appearance: no apparent distress Objective no change Esequiel Foley MD Apr 02, 2019 15:11
--- NOTE | 2019-04-02 15:13 | Hematology/Onc Progress Note ---
Assessment/Plan Assessment/Plan Assessment and Recs: # Thrombocytopenia - due to etoh abise, is in this case very likely due to underlying cirrhosis of the liver, portal htn, splenomegaly, with microcytic anemia --> have urged him to stop drinking --> Hep panel and HIV both NEG --> CT scan of a/p does confirm cirrhosis --> Peripheral smear ordered to evaluate for blasts /schistocytes shows mostly lymphocytes, likely due to low wbc in general --> abx and other meds have been reviewed --> plt 83-->26k--> 35k --> give platelet transfusion given rapid drop, r/o DIC as well, have ordered workup --> hold lovenox/heparin sq # Leukopenia -- due to underlying liver disease, cirrhosis and portal htn/ splenomegaly --> peripheral smear has been ordered and does not show significant abnormalities-->doesn't show any --> Medications have been reviewed --> Continue to monitor for improvement, trend cbc --> reverse isolation if ANC is <2000 # Pancreatitis from an elevated lipase but also findings on CT suggestive of cirrhosis which he says is a new diagnosis with him, portal hypertension, splenomegaly. 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 Greatly appreciate consultation. Subjective Constitutional: Denies: no symptoms, chills, fever, malaise, weakness, other HEENT: Denies: no symptoms, eye pain, blurred vision, tearing, double vision, ear pain, ear discharge, nose pain, nose congestion, throat pain, throat swelling, mouth pain, mouth swelling, other Cardiovascular: Denies: no symptoms, chest pain, edema, irregular heart rate, lightheadedness, palpitations, syncope, other Respiratory: Denies: no symptoms, cough, shortness of breath, SOB with excertion, SOB at rest, sputum, wheezing, other Gastrointestinal/Abdominal: Denies: no symptoms, abdomen distended, abdominal pain, black stools, tarry stools, blood in stool, constipated, diarrhea, difficulty swallowing, nausea, poor appetite, poor fluid intake, rectal bleeding , vomiting, other Genitourinary: Denies: no symptoms, burning, discharge, frequency, flank pain, hematuria, incontinence, pain, urgency, other Neurologic/Psychiatric: Denies: no symptoms, anxiety, depressed, emotional problems, headache, numbness, paresthesia, pre-existing deficit, seizure, tingling, tremors, weakness, other Allergies: Coded Allergies: No Known Allergies (Unverified , 03/31/19) Subjective 04/02: labs reviewed, no f/c, no bleeding, no night sweats Objective Objective Current Medications Medications (Trade) Dose Ordered Sig/Sheyla Route PRN Reason Start Time Stop Time Status Last Admin Dose Admin Clonidine HCl (Catapres Tab) 0.1 mg Q6H PRN ORAL SBP>170 03/31/19 21:15 04/30/19 21:14 Dextrose/ Electrolytes 1,000 ml @ 75 mls/hr [id number] IV 04/01/19 17:00 05/01/19 16:59 04/01/19 19:02 Folic Acid 1 mg/ Multivitamins 10 ml/Magnesium Sulfate 2000 mg/ Sodium Chloride 1,014.2 ml @ 75 mls/hr Q24H IV 03/31/19 23:00 04/30/19 22:59 04/01/19 23:37 Iron Sucrose 100 mg/Sodium Chloride 60 ml @ 240 mls/hr BEDTIME IV 04/02/19 21:00 04/06/19 21:14 Iron Sucrose 100 mg/Sodium Chloride 60 ml @ 240 mls/hr BEDTIME IVPB 04/03/19 21:00 04/07/19 21:14 UNV Iron Sucrose 200 mg/Sodium Chloride 120 ml @ 240 mls/hr ONCE ONCE IVPB 04/02/19 15:15 04/02/19 15:44 UNV Lorazepam (Ativan 2mg/ml 1ml) 2 mg Q2H PRN IV For Seizures 03/31/19 21:15 04/07/19 21:14 Thiamine HCl 100 mg/Dextrose 56 ml @ 112 mls/hr Q24H IVPB 03/31/19 23:00 04/30/19 22:59 04/01/19 23:37 Last 24 Hour Vital Signs Date Time Temp Pulse Resp B/P (MAP) Pulse Ox O2 Delivery O2 Flow Rate FiO2 04/02/19 11:57 98.2 61 17 144/87 (106) 99 04/02/19 08:00 98.4 68 17 142/85 (104) 97 04/02/19 08:00 Room Air 04/02/19 04:00 98.4 68 17 124/76 (92) 97 04/02/19 00:00 98.2 62 17 125/81 (96) 97 04/01/19 21:00 Room Air 04/01/19 20:00 98.4 70 16 127/76 (93) 97 04/01/19 16:00 98.5 71 18 122/90 (101) 97 04/01/19 12:00 98.4 80 20 135/80 (98) 97 04/01/19 09:00 Room Air 04/01/19 08:00 98.6 78 18 140/77 (98) 96 04/01/19 04:00 98.1 73 17 144/81 (102) 98 04/01/19 00:00 98.6 90 18 121/69 (86) 95 03/31/19 23:09 Room Air 03/31/19 20:00 98.5 92 19 124/70 (88) 95 03/31/19 18:58 98.0 98 18 131/84 95 Room Air 03/31/19 18:01 98.2 95 18 128/79 95 Room Air 03/31/19 16:54 97.6 98 15 135/84 95 Room Air 03/31/19 16:02 98.0 03/31/19 15:15 98.2 100 18 128/78 95 Room Air Intake and Output 04/01/19 04/02/19 18:59 06:59 Intake Total 1359 ml 1372 ml Balance 1359 ml 1372 ml Intake Oral 300 ml 360 ml IV Total 725 ml 1012 ml Blood Product 334 ml # Voids 3 Labs Test 03/31/19 12:30 04/01/19 05:53 04/01/19 09:00 04/01/19 19:10 White Blood Count 5.3 K/UL (4.8-10.8) 3.7 K/UL (4.8-10.8) Red Blood Count 3.89 M/UL (4.70-6.10) 3.63 M/UL (4.70-6.10) Hemoglobin 8.9 G/DL (14.2-18.0) 8.3 G/DL (14.2-18.0) Hematocrit 30.2 % (42.0-52.0) 27.7 % (42.0-52.0) Mean Corpuscular Volume 78 FL (80-99) 76 FL (80-99) Mean Corpuscular Hemoglobin 22.9 PG (27.0-31.0) 23.0 PG (27.0-31.0) Mean Corpuscular Hemoglobin Concent 29.5 G/DL (32.0-36.0) 30.1 G/DL (32.0-36.0) Red Cell Distribution Width 19.1 % (11.6-14.8) 19.0 % (11.6-14.8) Platelet Count 83 K/UL (150-450) 26 K/UL (150-450) Mean Platelet Volume 8.9 FL (6.5-10.1) 8.5 FL (6.5-10.1) Neutrophils (%) (Auto) % (45.0-75.0) % (45.0-75.0) Lymphocytes (%) (Auto) % (20.0-45.0) % (20.0-45.0) Monocytes (%) (Auto) % (1.0-10.0) % (1.0-10.0) Eosinophils (%) (Auto) % (0.0-3.0) % (0.0-3.0) Basophils (%) (Auto) % (0.0-2.0) % (0.0-2.0) Differential Total Cells Counted 100 100 Neutrophils % (Manual) 45 % (45-75) 54 % (45-75) Lymphocytes % (Manual) 48 % (20-45) 34 % (20-45) Monocytes % (Manual) 4 % (1-10) 10 % (1-10) Eosinophils % (Manual) 3 % (0-3) 2 % (0-3) Basophils % (Manual) 0 % (0-2) 0 % (0-2) Band Neutrophils 0 % (0-8) 0 % (0-8) Platelet Estimate Decreased Decreased Platelet Morphology Normal Clumped Platelets 1+ Hypochromasia 1+ 2+ Anisocytosis 1+ 2+ Microcytosis 1+ 1+ Prothrombin Time 11.2 SEC (9.30-11.50) 11.6 SEC (9.30-11.50) Prothromb Time International Ratio 1.1 (0.9-1.1) 1.1 (0.9-1.1) Activated Partial Thromboplast Time 28 SEC (23-33) Urine Color Pale yellow Urine Appearance Clear Urine pH 5 (4.5-8.0) Urine Specific [place] 1.015 (1.005-1.035) Urine Protein 2+ (NEGATIVE) Urine Glucose (UA) Negative (NEGATIVE) Urine Ketones Negative (NEGATIVE) Urine Blood 1+ (NEGATIVE) Urine Nitrite Negative (NEGATIVE) Urine Bilirubin Negative (NEGATIVE) Urine Urobilinogen Normal MG/DL (0.0-1.0) Urine Leukocyte Esterase Negative (NEGATIVE) Urine RBC 0-2 /HPF (0 - 0) Urine WBC 0 /HPF (0 - 0) Urine Squamous Epithelial Cells Occasional /LPF Urine Bacteria Occasional /HPF (NONE) Sodium Level 142 MMOL/L (136-145) 138 MMOL/L (136-145) Potassium Level 3.7 MMOL/L (3.5-5.1) 3.3 MMOL/L (3.5-5.1) Chloride Level 109 MMOL/L (98-107) 104 MMOL/L (98-107) Carbon Dioxide Level 24 MMOL/L (21-32) 28 MMOL/L (21-32) Anion Gap 9 mmol/L (5-15) 6 mmol/L (5-15) Blood Urea Nitrogen 9 mg/dL (7-18) 7 mg/dL (7-18) Creatinine 0.9 MG/DL (0.55-1.30) 0.7 MG/DL (0.55-1.30) Estimat Glomerular Filtration Rate > 60 mL/min (>60) > 60 mL/min (>60) Glucose Level 119 MG/DL (74-106) 86 MG/DL (74-106) Calcium Level 8.0 MG/DL (8.5-10.1) 8.2 MG/DL (8.5-10.1) Total Bilirubin 0.4 MG/DL (0.2-1.0) 0.6 MG/DL (0.2-1.0) Aspartate Amino Transf (AST/SGOT) 66 U/L (15-37) 54 U/L (15-37) Alanine Aminotransferase (ALT/SGPT) 53 U/L (12-78) 45 U/L (12-78) Alkaline Phosphatase 99 U/L (46-116) 99 U/L (46-116) Total Creatine Kinase 141 U/L (26-308) Total Protein 8.7 G/DL (6.4-8.2) 8.5 G/DL (6.4-8.2) Albumin 3.2 G/DL (3.4-5.0) 3.1 G/DL (3.4-5.0) Globulin 5.5 g/dL 5.4 g/dL Albumin/Globulin Ratio 0.6 (1.0-2.7) 0.7 (0.7-1.7) Lipase 623 U/L (73-393) 552 U/L (73-393) Total Protein (PEP) 7.4 g/dL (6.0-8.5) Albumin (PEP) 3.1 g/dL (2.9-4.4) Globulin (PEP) 4.3 g/dL (2.2-3.9) Svzmf-0-Vgtwwvdia 0.2 g/dL (0.0-0.4) Vhntt-8-Yqvkxytmo 0.6 g/dL (0.4-1.0) Beta Globulins 1.2 g/dL (0.7-1.3) Beta Gamma Globulin 2.3 g/dL (0.4-1.8) PEP Abnormal Protein Bands Not observed g/dL (Not Protein Electrophoresis Interpret Comment (.) Hepatitis A IgM Antibody Negative (Negative) Hepatitis B Surface Antigen Negative (Negative) Hepatitis B Core IgM Antibody Negative (Negative) Hepatitis C Antibody 0.2 s/co ratio (0.0-0.9) HIV (1&2) Antibody Rapid Negative (NEGATIVE) Fibrinogen 213 mg/dL (200-400) Urine Opiates Screen Negative (NEGATIVE) Urine Barbiturates Screen Negative (NEGATIVE) Phencyclidine (PCP) Screen Negative (NEGATIVE) Urine Amphetamines Screen Negative (NEGATIVE) Urine Benzodiazepines Screen Negative (NEGATIVE) Urine Cocaine Screen Negative (NEGATIVE) Urine Marijuana (THC) Screen Negative (NEGATIVE) Test 04/02/19 06:10 White Blood Count 3.1 K/UL (4.8-10.8) Red Blood Count 3.85 M/UL (4.70-6.10) Hemoglobin 8.8 G/DL (14.2-18.0) Hematocrit 29.4 % (42.0-52.0) Mean Corpuscular Volume 76 FL (80-99) Mean Corpuscular Hemoglobin 22.9 PG (27.0-31.0) Mean Corpuscular Hemoglobin Concent 30.0 G/DL (32.0-36.0) Red Cell Distribution Width 18.6 % (11.6-14.8) Platelet Count 35 K/UL (150-450) Mean Platelet Volume 4.6 FL (6.5-10.1) Neutrophils (%) (Auto) % (45.0-75.0) Lymphocytes (%) (Auto) % (20.0-45.0) Monocytes (%) (Auto) % (1.0-10.0) Eosinophils (%) (Auto) % (0.0-3.0) Basophils (%) (Auto) % (0.0-2.0) Differential Total Cells Counted 100 Neutrophils % (Manual) 52 % (45-75) Lymphocytes % (Manual) 34 % (20-45) Monocytes % (Manual) 12 % (1-10) Eosinophils % (Manual) 2 % (0-3) Basophils % (Manual) 0 % (0-2) Band Neutrophils 0 % (0-8) Platelet Estimate Decreased Platelet Morphology Clumped Platelets 1+ Hypochromasia 1+ Anisocytosis 1+ Microcytosis 1+ Sodium Level 137 MMOL/L (136-145) Potassium Level 3.5 MMOL/L (3.5-5.1) Chloride Level 102 MMOL/L (98-107) Carbon Dioxide Level 28 MMOL/L (21-32) Anion Gap 7 mmol/L (5-15) Blood Urea Nitrogen 7 mg/dL (7-18) Creatinine 0.8 MG/DL (0.55-1.30) Estimat Glomerular Filtration Rate > 60 mL/min (>60) Glucose Level 115 MG/DL (74-106) Hemoglobin A1c 6.0 % (4.3-6.0) Uric Acid 4.6 MG/DL (2.6-7.2) Calcium Level 8.8 MG/DL (8.5-10.1) Phosphorus Level 2.9 MG/DL (2.5-4.9) Magnesium Level 2.1 MG/DL (1.8-2.4) Iron Level 29 ug/dL (50-175) Total Iron Binding Capacity 380 ug/dL (250-450) Percent Iron Saturation 8 % (15-50) Unsaturated Iron Binding 351 ug/dL (112-346) Ferritin 13 NG/ML (8-388) Total Bilirubin 1.1 MG/DL (0.2-1.0) Direct Bilirubin 0.3 MG/DL (0.0-0.3) Gamma Glutamyl Transpeptidase 852 U/L (5-85) Aspartate Amino Transf (AST/SGOT) 44 U/L (15-37) Alanine Aminotransferase (ALT/SGPT) 42 U/L (12-78) Alkaline Phosphatase 102 U/L (46-116) Ammonia 25 umol/L (11-32) C-Reactive Protein, Quantitative < 0.4 mg/dL (0.00-0.90) Pro-B-Type Natriuretic Peptide 96 pg/mL (0-125) Total Protein 8.6 G/DL (6.4-8.2) Albumin 3.1 G/DL (3.4-5.0) Globulin 5.5 g/dL Albumin/Globulin Ratio 0.6 (1.0-2.7) Vitamin B12 Level 1301 PG/ML (193-986) Folate 25.1 NG/ML (8.6-58.9) Height (Feet): 5 Height (Inches): 10.00 Weight (Pounds): 169 Audi Ott MD Apr 02, 2019 15:13
--- NOTE | 2019-04-02 15:23 | NUR ---
*-* INSURANCE *-* ALL AVAILABLE CLINICALS HAVE BEEN FAXED TO: [employer]AN[employer] NO [employer] RE[employer]UITER ASSIGNED AT THIS TIME PLEASE FAX THE REVIEW/CLINICAL P- [phone] F- [phone]...REVIEW/CLINICAL
[2019-04-02 16:00] VITALS: BP 138/93
[2019-04-02] MEDS: Thiamine 100mg tab ORAL SCH (16:07)
[2019-04-02] MEDS ORDERED: Iron Sucrose 200 MG in NS 110 ML IV ONE (17:00)
[2019-04-02] MEDS ORDERED: D5NS w/KCl 40mEq 1000ml 1,000 ML IV SCH (17:00)
--- NOTE | 2019-04-02 19:23 | NUR ---
HAND-OFF: Report given to SELENA Montero RESTING COMFORTABLY IN BED, PATIENT STABLE. SELENA NASH
--- NOTE | 2019-04-02 19:57 | NUR ---
NURSE NOTES: Patient in bed, awake, alert and verbally responsive. Able to make needs known. No complaint of pain or discomfort ntoed. Skin is warm and dry to touch. Respiration is even and unlabored. Iv site noted. Iv fluid is infusing as ordered. Bed in low and locked position. Call light is at bedside. Will continue plan of care.
[2019-04-02 20:00] VITALS: BP 143/79
[2019-04-02] MEDS ORDERED: Iron Sucrose 100 MG in NS 55 ML IV SCH (21:00)
[2019-04-03] VITALS: BP 144/82
[2019-04-03 04:00] VITALS: BP 131/84
[2019-04-03 06:42] LABS: HEMATOCRIT 30.5 % (42.0-52.0); HEMOGLOBIN 9.1 G/DL (14.2-18.0); MEAN CORPUSCULAR VOLUME 77 FL (80-99); PLATELET COUNT 46 K/UL (150-450); RED BLOOD COUNT 3.97 M/UL (4.70-6.10); RED CELL DISTRIBUTION WIDTH 18.6 % (11.6-14.8); WHITE BLOOD COUNT 3.7 K/UL (4.8-10.8)
--- NOTE | 2019-04-03 07:10 | NUR ---
HAND-OFF: Report given to Patricia Connolly.
--- NOTE | 2019-04-03 07:45 | NUR ---
NURSE NOTES: Received patient on bed, awake. IV intact and patent. Bed in low and locked position, call light in reach. No signs of respiratory distress or pain. Room board updated, will continue to monitor.
[2019-04-03 08:00] VITALS: BP 124/83
[2019-04-03] MEDS: Thiamine 100mg tab ORAL SCH (09:01)
--- NOTE | 2019-04-03 10:47 | Nephrology Progress Note ---
Assessment/Plan Problem List: (1) Pancreatitis (2) Liver cirrhosis (3) HTN (hypertension) Assessment Pancreatitis Anemia HTN Cirrhosis Plan Anemia mena, low Iron IV venofer PRN BP meds Per orders Subjective ROS Limited/Unobtainable: No Objective Objective Last 24 Hour Vital Signs Date Time Temp Pulse Resp B/P (MAP) Pulse Ox O2 Delivery O2 Flow Rate FiO2 04/03/19 09:00 Room Air 04/03/19 08:00 98.3 76 18 124/83 (97) 97 04/03/19 04:00 97.5 76 16 131/84 (100) 99 04/03/19 00:00 97.6 74 16 144/82 (102) 99 04/02/19 21:00 Room Air 04/02/19 20:00 97.8 71 16 143/79 (100) 98 04/02/19 16:00 98.4 70 17 138/93 (108) 98 04/02/19 11:57 98.2 61 17 144/87 (106) 99 Intake and Output 04/02/19 04/03/19 19:00 07:00 Intake Total 1645 ml 360 ml Balance 1645 ml 360 ml Intake Oral 900 ml IV Total 745 ml 360 ml # Voids 3 Laboratory Tests 04/03/19 06:17: White Blood Count 3.7L, Red Blood Count 3.97L, Hemoglobin 9.1L, Hematocrit 30.5L , Mean Corpuscular Volume 77L, Mean Corpuscular Hemoglobin 22.8L, Mean Corpuscular Hemoglobin Concent 29.7L, Red Cell Distribution Width 18.6H, Platelet Count 46L, Mean Platelet Volume 7.2, Neutrophils (%) (Auto) , Lymphocytes (%) (Auto) , Monocytes (%) (Auto) , Eosinophils (%) (Auto) , Basophils (%) (Auto) , Differential Total Cells Counted 100, Neutrophils % ( Manual) 74, Lymphocytes % (Manual) 20, Monocytes % (Manual) 5, Eosinophils % ( Manual) 1, Basophils % (Manual) 0, Band Neutrophils 0, Platelet Estimate DecreasedL, Platelet Morphology , Clumped Platelets Occasional, Hypochromasia 1+ , Anisocytosis 1+, Microcytosis 1+ Height (Feet): 5 Height (Inches): 10.00 Weight (Pounds): 169 General Appearance: no apparent distress Objective no change Fouladian,Esequiel MD Apr 03, 2019 10:47
[2019-04-03] MEDS ORDERED: Flu Vaccine Pts Less than 65 Years old IM ONE (11:00)
[2019-04-03] MEDS ORDERED: Tubing IV Secondary IV ONE (11:35)
--- NOTE | 2019-04-03 11:40 | NUR ---
NURSE NOTES: Patient discharged. IV removed and site covered. Personal belongings inventoried and sent with patient. Patient needs met and patient kept comfortable at all times. Patient departed on foot with bus tokens to [facility] bus stop.
--- NOTE | 2019-04-03 14:39 | Hematology/Onc Progress Note ---
Assessment/Plan Assessment/Plan Assessment and Recs: # Thrombocytopenia - due to etoh abise, is in this case very likely due to underlying cirrhosis of the liver, portal htn, splenomegaly, with microcytic anemia --> have urged him to stop drinking --> Hep panel and HIV both NEG --> CT scan of a/p does confirm cirrhosis --> Peripheral smear ordered to evaluate for blasts /schistocytes shows mostly lymphocytes, likely due to low wbc in general --> abx and other meds have been reviewed --> plt 83-->26k--> 35k --> give platelet transfusion given rapid drop, r/o DIC as well --> hold lovenox/heparin sq # Leukopenia -- due to underlying liver disease, cirrhosis and portal htn/ splenomegaly --> peripheral smear has been ordered and does not show significant abnormalities-->doesn't show any --> Medications have been reviewed --> Continue to monitor for improvement, trend cbc --> reverse isolation if ANC is <2000 --> wbc 5.3-->3.7 # Pancreatitis from an elevated lipase but also findings on CT suggestive of cirrhosis which he says is a new diagnosis with him, portal hypertension, splenomegaly. 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 Greatly appreciate consultation. Subjective Constitutional: Denies: no symptoms, chills, fever, malaise, weakness, other HEENT: Denies: no symptoms, eye pain, blurred vision, tearing, double vision, ear pain, ear discharge, nose pain, nose congestion, throat pain, throat swelling, mouth pain, mouth swelling, other Cardiovascular: Denies: no symptoms, chest pain, edema, irregular heart rate, lightheadedness, palpitations, syncope, other Respiratory: Denies: no symptoms, cough, shortness of breath, SOB with excertion, SOB at rest, sputum, wheezing, other Gastrointestinal/Abdominal: Denies: no symptoms, abdomen distended, abdominal pain, black stools, tarry stools, blood in stool, constipated, diarrhea, difficulty swallowing, nausea, poor appetite, poor fluid intake, rectal bleeding , vomiting, other Endocrine: Denies: no symptoms, excessive sweating, flushing, intolerance to cold, intolerance to heat, increased hunger, increased thirst, increased urine, unexplained weight gain, unexplained weight loss, other Hematologic/Lymphatic: Denies: no symptoms, anemia, easy bleeding, easy bruising, adenopathy, other Allergies: Coded Allergies: No Known Allergies (Unverified , 03/31/19) Subjective 04/02: labs reviewed, no f/c, no bleeding, no night sweats 04/03: no events to report, no bleeding noted, no f/c Objective Objective Last 24 Hour Vital Signs Date Time Temp Pulse Resp B/P (MAP) Pulse Ox O2 Delivery O2 Flow Rate FiO2 04/03/19 09:00 Room Air 04/03/19 08:00 98.3 76 18 124/83 (97) 97 04/03/19 04:00 97.5 76 16 131/84 (100) 99 04/03/19 00:00 97.6 74 16 144/82 (102) 99 04/02/19 21:00 Room Air 04/02/19 20:00 97.8 71 16 143/79 (100) 98 04/02/19 16:00 98.4 70 17 138/93 (108) 98 04/02/19 11:57 98.2 61 17 144/87 (106) 99 04/02/19 08:00 98.4 68 17 142/85 (104) 97 04/02/19 08:00 Room Air 04/02/19 04:00 98.4 68 17 124/76 (92) 97 04/02/19 00:00 98.2 62 17 125/81 (96) 97 04/01/19 21:00 Room Air 04/01/19 20:00 98.4 70 16 127/76 (93) 97 04/01/19 16:00 98.5 71 18 122/90 (101) 97 Intake and Output 04/02/19 04/03/19 18:59 06:59 Intake Total 1680 ml 400 ml Balance 1680 ml 400 ml Intake Oral 900 ml IV Total 780 ml 400 ml # Voids 3 Labs Test 04/01/19 05:53 04/01/19 09:00 04/01/19 19:10 04/02/19 06:10 White Blood Count 3.7 K/UL (4.8-10.8) 3.1 K/UL (4.8-10.8) Red Blood Count 3.63 M/UL (4.70-6.10) 3.85 M/UL (4.70-6.10) Hemoglobin 8.3 G/DL (14.2-18.0) 8.8 G/DL (14.2-18.0) Hematocrit 27.7 % (42.0-52.0) 29.4 % (42.0-52.0) Mean Corpuscular Volume 76 FL (80-99) 76 FL (80-99) Mean Corpuscular Hemoglobin 23.0 PG (27.0-31.0) 22.9 PG (27.0-31.0) Mean Corpuscular Hemoglobin Concent 30.1 G/DL (32.0-36.0) 30.0 G/DL (32.0-36.0) Red Cell Distribution Width 19.0 % (11.6-14.8) 18.6 % (11.6-14.8) Platelet Count 26 K/UL (150-450) 35 K/UL (150-450) Mean Platelet Volume 8.5 FL (6.5-10.1) 4.6 FL (6.5-10.1) Neutrophils (%) (Auto) % (45.0-75.0) % (45.0-75.0) Lymphocytes (%) (Auto) % (20.0-45.0) % (20.0-45.0) Monocytes (%) (Auto) % (1.0-10.0) % (1.0-10.0) Eosinophils (%) (Auto) % (0.0-3.0) % (0.0-3.0) Basophils (%) (Auto) % (0.0-2.0) % (0.0-2.0) Differential Total Cells Counted 100 100 Neutrophils % (Manual) 54 % (45-75) 52 % (45-75) Lymphocytes % (Manual) 34 % (20-45) 34 % (20-45) Monocytes % (Manual) 10 % (1-10) 12 % (1-10) Eosinophils % (Manual) 2 % (0-3) 2 % (0-3) Basophils % (Manual) 0 % (0-2) 0 % (0-2) Band Neutrophils 0 % (0-8) 0 % (0-8) Platelet Estimate Decreased Decreased Platelet Morphology Normal Hypochromasia 2+ 1+ Anisocytosis 2+ 1+ Microcytosis 1+ 1+ Sodium Level 138 MMOL/L (136-145) 137 MMOL/L (136-145) Potassium Level 3.3 MMOL/L (3.5-5.1) 3.5 MMOL/L (3.5-5.1) Chloride Level 104 MMOL/L (98-107) 102 MMOL/L (98-107) Carbon Dioxide Level 28 MMOL/L (21-32) 28 MMOL/L (21-32) Anion Gap 6 mmol/L (5-15) 7 mmol/L (5-15) Blood Urea Nitrogen 7 mg/dL (7-18) 7 mg/dL (7-18) Creatinine 0.7 MG/DL (0.55-1.30) 0.8 MG/DL (0.55-1.30) Estimat Glomerular Filtration Rate > 60 mL/min (>60) > 60 mL/min (>60) Glucose Level 86 MG/DL (74-106) 115 MG/DL (74-106) Calcium Level 8.2 MG/DL (8.5-10.1) 8.8 MG/DL (8.5-10.1) Total Bilirubin 0.6 MG/DL (0.2-1.0) 1.1 MG/DL (0.2-1.0) Aspartate Amino Transf (AST/SGOT) 54 U/L (15-37) 44 U/L (15-37) Alanine Aminotransferase (ALT/SGPT) 45 U/L (12-78) 42 U/L (12-78) Alkaline Phosphatase 99 U/L (46-116) 102 U/L (46-116) Total Protein 8.5 G/DL (6.4-8.2) 8.6 G/DL (6.4-8.2) Total Protein (PEP) 7.4 g/dL (6.0-8.5) Albumin 3.1 G/DL (3.4-5.0) 3.1 G/DL (3.4-5.0) Albumin (PEP) 3.1 g/dL (2.9-4.4) Globulin 5.4 g/dL 5.5 g/dL Globulin (PEP) 4.3 g/dL (2.2-3.9) Albumin/Globulin Ratio 0.7 (0.7-1.7) 0.6 (1.0-2.7) Iwhai-9-Zivycemir 0.2 g/dL (0.0-0.4) Jxncp-3-Rjvzmxdpo 0.6 g/dL (0.4-1.0) Beta Globulins 1.2 g/dL (0.7-1.3) Beta Gamma Globulin 2.3 g/dL (0.4-1.8) PEP Abnormal Protein Bands Not observed g/dL (Not Protein Electrophoresis Interpret Comment (.) Lipase 552 U/L (73-393) Hepatitis A IgM Antibody Negative (Negative) Hepatitis B Surface Antigen Negative (Negative) Hepatitis B Core IgM Antibody Negative (Negative) Hepatitis C Antibody 0.2 s/co ratio (0.0-0.9) HIV (1&2) Antibody Rapid Negative (NEGATIVE) Prothrombin Time 11.6 SEC (9.30-11.50) Prothromb Time International Ratio 1.1 (0.9-1.1) Fibrinogen 213 mg/dL (200-400) Urine Opiates Screen Negative (NEGATIVE) Urine Barbiturates Screen Negative (NEGATIVE) Phencyclidine (PCP) Screen Negative (NEGATIVE) Urine Amphetamines Screen Negative (NEGATIVE) Urine Benzodiazepines Screen Negative (NEGATIVE) Urine Cocaine Screen Negative (NEGATIVE) Urine Marijuana (THC) Screen Negative (NEGATIVE) Clumped Platelets 1+ Hemoglobin A1c 6.0 % (4.3-6.0) Uric Acid 4.6 MG/DL (2.6-7.2) Phosphorus Level 2.9 MG/DL (2.5-4.9) Magnesium Level 2.1 MG/DL (1.8-2.4) Iron Level 29 ug/dL (50-175) Total Iron Binding Capacity 380 ug/dL (250-450) Percent Iron Saturation 8 % (15-50) Unsaturated Iron Binding 351 ug/dL (112-346) Ferritin 13 NG/ML (8-388) Direct Bilirubin 0.3 MG/DL (0.0-0.3) Gamma Glutamyl Transpeptidase 852 U/L (5-85) Ammonia 25 umol/L (11-32) C-Reactive Protein, Quantitative < 0.4 mg/dL (0.00-0.90) Pro-B-Type Natriuretic Peptide 96 pg/mL (0-125) Vitamin B12 Level 1301 PG/ML (193-986) Folate 25.1 NG/ML (8.6-58.9) Test 04/03/19 06:17 White Blood Count 3.7 K/UL (4.8-10.8) Red Blood Count 3.97 M/UL (4.70-6.10) Hemoglobin 9.1 G/DL (14.2-18.0) Hematocrit 30.5 % (42.0-52.0) Mean Corpuscular Volume 77 FL (80-99) Mean Corpuscular Hemoglobin 22.8 PG (27.0-31.0) Mean Corpuscular Hemoglobin Concent 29.7 G/DL (32.0-36.0) Red Cell Distribution Width 18.6 % (11.6-14.8) Platelet Count 46 K/UL (150-450) Mean Platelet Volume 7.2 FL (6.5-10.1) Neutrophils (%) (Auto) % (45.0-75.0) Lymphocytes (%) (Auto) % (20.0-45.0) Monocytes (%) (Auto) % (1.0-10.0) Eosinophils (%) (Auto) % (0.0-3.0) Basophils (%) (Auto) % (0.0-2.0) Differential Total Cells Counted 100 Neutrophils % (Manual) 74 % (45-75) Lymphocytes % (Manual) 20 % (20-45) Monocytes % (Manual) 5 % (1-10) Eosinophils % (Manual) 1 % (0-3) Basophils % (Manual) 0 % (0-2) Band Neutrophils 0 % (0-8) Platelet Estimate Decreased Platelet Morphology Clumped Platelets Occasional Hypochromasia 1+ Anisocytosis 1+ Microcytosis 1+ Height (Feet): 5 Height (Inches): 10.00 Weight (Pounds): 169 Audi Ott MD Apr 03, 2019 14:39
--- NOTE | 2019-04-03 15:44 | NUR ---
*-* INSURANCE *-* ALL AVAILABLE CLINICALS HAVE BEEN FAXED TO: [employer] PIPELINE SUPERVISOR ASSIGNED AT THIS TIME PLEASE FAX THE REVIEW/CLINICAL P- [phone] F- [phone]...REVIEW/CLINICAL
--- NOTE | 2019-04-03 18:49 | General Progress Note ---
Assessment/Plan Status: progressing Assessment/Plan: Assessment - alcohol abuse - alcoholic liver disease - alcoholic pancreatitis - Anemia / thrombocytopenia - Iron deficiency Recommendations - d/c EtOH - follow labs - po solids - IV Iron - Patient understands he should undergo outpatient EGD/colonoscopy given anemia Subjective Allergies: Coded Allergies: No Known Allergies (Unverified , 03/31/19) Subjective Better tolerating PO no abd pain Objective Last 24 Hour Vital Signs Date Time Temp Pulse Resp B/P (MAP) Pulse Ox O2 Delivery O2 Flow Rate FiO2 04/03/19 09:00 Room Air 04/03/19 08:00 98.3 76 18 124/83 (97) 97 04/03/19 04:00 97.5 76 16 131/84 (100) 99 04/03/19 00:00 97.6 74 16 144/82 (102) 99 04/02/19 21:00 Room Air 04/02/19 20:00 97.8 71 16 143/79 (100) 98 Intake and Output 04/02/19 04/03/19 19:00 07:00 Intake Total 1645 ml 360 ml Balance 1645 ml 360 ml Intake Oral 900 ml IV Total 745 ml 360 ml # Voids 3 Laboratory Tests 04/03/19 06:17: White Blood Count 3.7L, Red Blood Count 3.97L, Hemoglobin 9.1L, Hematocrit 30.5L , Mean Corpuscular Volume 77L, Mean Corpuscular Hemoglobin 22.8L, Mean Corpuscular Hemoglobin Concent 29.7L, Red Cell Distribution Width 18.6H, Platelet Count 46L, Mean Platelet Volume 7.2, Neutrophils (%) (Auto) , Lymphocytes (%) (Auto) , Monocytes (%) (Auto) , Eosinophils (%) (Auto) , Basophils (%) (Auto) , Differential Total Cells Counted 100, Neutrophils % ( Manual) 74, Lymphocytes % (Manual) 20, Monocytes % (Manual) 5, Eosinophils % ( Manual) 1, Basophils % (Manual) 0, Band Neutrophils 0, Platelet Estimate DecreasedL, Platelet Morphology , Clumped Platelets Occasional, Hypochromasia 1+ , Anisocytosis 1+, Microcytosis 1+ Height (Feet): 5 Height (Inches): 10.00 Weight (Pounds): 169 Objective WDWN NCAT supple CTA RR Abd soft NT ND no edema non focal Khorrami,Payman MD Apr 03, 2019 18:49
[2019-04-03] MEDS ORDERED: Iron Sucrose 100 MG in NS 55 ML IV SCH (21:00)
--- NOTE | 2019-04-04 20:44 | Discharge Summary ---
Discharge Summary Discharge Summary _ DATE OF ADMISSION: 03/31/2019 DATE OF DISCHARGE: 04/03/2019 DISCHARGED BY: Dr. Bambi Best CONSULTANTS: Dr. Fatou Foley BRIEF HOSPITAL COURSE: Patient is a 43-year-old male, who presented to ED due to low back pain and abdominal pain for couple of days with associated nausea but no vomiting. Denied rectal bleeding. He has history of uncontrolled hypertension, type 2 diabetes and alcohol abuse. He is noncompliant with medications. On evaluation at the ED, blood work did not show any leukocytosis. Hemoglobin 9 , hematocrit 30, platelet 83. Electrolytes were normal. Calcium 8.0. AST 66, ALT 53. Lipase was 623. Chest x-ray did not show any acute disease. Lumbar spine x-ray showed degenerative changes with no acute bony trauma, no fracture or dislocation. X-ray of the chest and left rib did not show any acute process with evidence of old granulomatous disease. Calcified granuloma in the right mid lung. No pneumothorax. CT of the abdomen and pelvis with contrast showed evidence of hepatic cirrhosis, evidence of portal hypertension, with splenomegaly and small diuresis. Prominent prostate. Dependent posterior pulmonary atelectatic changes and mild degenerative spondylosis. He was admitted for evaluation of abdominal pain, pancreatitis due to alcohol abuse. GI was consulted. Patient with long-standing history of alcohol drinking and portal hypertension and cirrhosis manifesting as thrombocytopenia and elevated LFTs. Lipase was elevated, however patient denies abdominal pain. He was started on p.o. diet. He was strongly advised to discontinue drinking alcohol. He was given IV hydration. He was given folic acid, multivitamin and thiamine. He was given IV iron for anemia. He was recommended should undergo outpatient EGD and colonoscopy. Hematology was consulted. Patient had thrombocytopenia secondary to EtOH abuse. Platelet count dropped to 26. He was given platelet transfusion. Leukopenia was secondary to liver disease, cirrhosis and portal hypertension with splenomegaly. Peripheral smear did not show any significant abnormalities. Hepatitis panel and HIV negative. He was tolerating diet well. He was cleared for discharge home. FINAL DIAGNOSES: Alcoholic pancreatitis Alcohol abuse Alcoholic liver disease Thrombocytopenia Iron deficiency Leukopenia Splenomegaly Type 2 diabetes Hypertension Cirrhosis due to EtOH use DISPOSITION: Patient was discharged home. DISCHARGE MEDICATIONS: Refer to Discharge Medication List. DISCHARGE INSTRUCTIONS: Follow-up in a week. I have been assigned to complete a discharge summary on this account, I was not involved with the patient's management.--GURPREET Beatty Jacqueline Robles NP Apr 04, 2019 20:44
--- NOTE | 2019-04-06 16:53 | NUR ---
*-* INSURANCE *-* DISCHARGE SUMMARY HAS HAVE BEEN FAXED TO: [employer] NO AIRCRAFT ENGINE DISMANTLER ASSIGNED AT THIS TIME PLEASE FAX THE REVIEW/CLINICAL P- [phone] F- [phone]...REVIEW/CLINICAL
== END 2019-04-03 11:36 | disposition home or self-care (01) | DRG 282 ==
LOC: EDBD 11:50 → EMR 13:00 → 4E 16:55 → EDBEDREQ 18:01 → 4E 04-02 16:47
PROC: 30233R1 Transfusion of Nonautologous Platelets into Peripheral Vein, Percutaneous Approach (ICD-10-PCS; principal; 2019-04-01)
DX: K85.20 Alcohol induced acute pancreatitis without necrosis or infection (principal); K70.10 Alcoholic hepatitis without ascites; K70.30 Alcoholic cirrhosis of liver without ascites; K76.6 Portal hypertension; D61.818 Other pancytopenia; E87.6 Hypokalemia; D73.2 Chronic congestive splenomegaly; F10.10 Alcohol abuse, uncomplicated; D72.819 Decreased white blood cell count, unspecified; E11.9 Type 2 diabetes mellitus without complications; Z79.84 Long term (current) use of oral hypoglycemic drugs; I10 Essential (primary) hypertension; R16.1 Splenomegaly, not elsewhere classified; D50.9 Iron deficiency anemia, unspecified; D69.59 Other secondary thrombocytopenia; Z91.14 Patient's other noncompliance with medication regimen; Z23 Encounter for immunization
CPT/HCPCS: 36415; 72020; 74177; 80053; 80307; 81001; 82140; 82248; 82550; 82607; 82728; 82746; 82962; 82977; 83036; 83540; 83550; 83690; 83735; 83880; 84100; 84165; 84550; 85007; 85025; 85384; 85610; 85730; 86140; 86703; 86705; 86709; 86803; 86850; 86900; 86901; 87340; 90689; 96361; 96374; 96375; 99285; J2405; J7030